=== PATIENT | male | born 1955 | race Caucasian/White ===

== ENCOUNTER 2024-09-22 13:55 | Emergency (ER) | payer OTHER, SELFPAY ==
[2024-09-22 13:58] VITALS: BP 136/57; PULSE 89; RESP 18; TEMP 36.6; O2SAT 90; BMI 32.0
--- NOTE | 2024-09-22 15:05 | ED_ITS ---
HPI - General Adult General Date Seen: 09/22/24 Chief complaint: Extremity Pain/Injury, Lower Stated complaint: left foot injury Time Seen by Provider: 09/22/24 14:59 History of Present Illness HPI narrative: 68 yo M with h/o tobacco use, COPD, hearing loss presenting to the ER today with concern for pain in the is He went to the ER in [place] on 09/19. Had ankle and foot x-rays of his left side that showed mild soft tissue swelling of the left foot. No acute fracture or dislocation . Per ER records... ?he developed left foot pain 2 days ago which has worsened since. Thinks that he may have kicked something a few days ago and so is concerned that he may have broken his foot. States that he was recently walking around at [facility] and believes that his could have contributed to his worsening pain. He endorses having numbness to the toes in his bilateral feet but denies a history of diabetes. Denies feeling short of breath or having any pain to his right lower extremity... patient has tenderness of the dorsum of the left midfoot but is neurovascularly intact. He does have some erythema on the dorsum of the left foot. No evidence of crepitus, streaking, hemorrhagic bullae to suggest necrotizing fasciitis. X-rays are negative for any fracture. presentation is suggestive of uncomplicated cellulitis of the left foot. No evidence of puncture wound on the plantar surface to indicate pseudomonal c overage. Discussed these findings with the patient and given that he is vitally stable, nontoxic-appearing, and has simple cellulitis through shared decision making we elected on a plan for a trial of outpatient antibiotics... History from the patient is that he was using his foot to kick a cement block last week 1 day when he was moving his boat. He does not recall kicking blood heart but maybe had some mild pain in his toes after that. He really have much pain for several days. Beginning sometime earlier this week, perhaps 4-6 days ago he started having increasing pain with swelling on the top of his foot. He says he has been taking the cephalexin (a 1000 mg p.o. t.i.d. but has noticed increasing redness and swelling of his foot and also slightly worsening pain in his entire foot. He did have some fevers and chills a few days ago but is not having a fever today. Came to the ER here in [place] today because he does not believe what the doctors in the ER in [place] told him. He is skeptical about their read of the x-rays. Since he was discharged from [place] he has noted increased swelling and redness on the top of his left foot. Also ongoing pain and pain with walking. He has had some chills but no objective fevers at home. No other body aches. No swelling or redness in his right foot. He has no known history of diabetes. He has no history of vascular disease. No history of DVT or PE. He is a smoker. Related Data Home Medications ?Medication ?Instructions ?Recorded ?Confirmed albuterol sulfate 90 mcg/actuation 1 - 2 puff inhalation Q4H PRN 09/22/24 09/22/24 aerosol inhaler dyspnea propranolol 60 mg capsule,24 60 mg PO DAILY 09/22/24 09/22/24 hr,extended release Allergies Allergy/AdvReac Type Severity Reaction Status Date / Time No Known Drug Allergies Allergy Verified 09/22/24 14:06 Exam Narrative: Exam Narrative: Constitutional: Appears well-developed and well-nourished. Alert. Conversant. Non toxic. HENT: Head: Atraumatic. Nose: Nose normal. Mouth/Throat: Oral mucosa is clear and moist. no trismus. Pharynx normal. Tonsils symmetric. No tonsillar enlargement, erythema, or exudate. Eyes: Conjunctivae normal. EOM normal. Pupils equal, round, and reactive to light. No scleral icterus. Neck: Normal range of motion. Neck supple. No tracheal deviation present. Cardiovascular: Normal rate, regular rhythm. No gallop. No friction rub. No murmur heard. Symmetric radial artery pulses Pulmonary/Chest: His mustache is stained from tobacco use. Effort normal. No stridor. No respiratory distress. No wheezes. No rales. No rhonchi . No tenderness. Abdominal: Soft. No distension. No mass. No tenderness. No rebound. No guarding. Musculoskeletal: RUE: Normal range of motion. No tenderness. No deformity LUE: Normal range of motion. No tenderness. No deformity RLE: Normal range of motion. Trace edema. No tenderness. No deformity no signs of erythema or swelling of the foot. He does have onychomycosis and thickening of all his toenails. LLE: Normal range of motion in his hip and knee and ankle.. He has 3+ edema in the foot and 1+ edema in the left frances and calf. He has marked erythema of the entire left foot from the toes all the way up to the anterior ankle with a small area of subtle redness extending about [address] the frances toward the knee. No other ascending lymphangitis. The entire foot is tender. No palpable fluctuance. No crepitus or gas in the soft tissue. I am not able to palpate DP or PT pulses due to overlying soft tissue edema but he does have brisk cap refi ll in the toes. There is a fairly large corn on the medial part of the toe without associated ulcer. I do not see any signs of puncture wounds to the sole of the feet or other so foot ulcers or maceration between the toes. Foot exam suspicious for diffuse cellulitis without a clear nidus for infection. Lymph: No ascending lymphangitis Neurological: Alert and oriented to person, place, and time. Normal strength. CN II-VII intact. No sensory deficit. GCS eye subscore is 4. GCS verbal subscore is 5. GCS motor subscore is 6. Normal coordination. intact distal toe weight- bearing and sensory function in both feet. Skin: Skin is warm and dry. No rash noted. No pallor. Normal capillary refill. Psychiatric: Normal mood. Normal affect. Const: Vital Signs, click to edit/add: Vital Signs - 24 hr 09/22/24 13:58 Temperature 98 F Pulse Rate [Pulse Oximeter] 89 Respiratory Rate 18 Blood Pressure [Ri ght Upper Arm] 136/57 L Pulse Oximetry 90 Oxygen Delivery Me thod Room Air Course Vital Signs Vital signs: Initial Vital Signs Temperature 98 F 09/22/24 13:58 Temperature Source Temporal Artery Scan 09/22/24 13:58 Pulse Rate 89 09/22/24 13:58 Respiratory Rate 18 09/22/24 13:58 Blood Pressure 136/57 L 09/22/24 13:58 Blood Pressure Mean 83 09/22/24 13:58 Blood Pressure Position Sitting 09/22/24 13:58 Pulse Oximetry 90 09/22/24 13:58 Oxygen Delivery Method Room Air 09/22/24 13:58 Vital Signs Temperature 98 F 09/22/24 13:58 Pulse Rate 89 09/22/24 13:58 Respiratory Rate 18 09/22/24 13:58 Blood Pressure 136/57 L 09/22/24 13:58 Pulse Oximetry 90 09/22/24 13:58 Oxygen Delivery Method Room Air 09/22/24 13:58 Temperature 98 F 09/22/24 13:58 Pulse Rate 89 09/22/24 13:58 Respiratory Rate 18 09/22/24 13:58 Blood Pressure 136/57 L 09/22/24 13:58 Pulse Oximetry 90 09/22/24 13:58 Oxygen Delivery Method Room Air 09/22/24 13:58 Medications Administered Medications: Discontinued Medications Generic Name Dose Route Start Last Admin Trade Name Skye PRN Reason Stop Dose Admin Amoxicillin/Clavulanate Potassium 875 mg 09/22/24 17:58 09/22/24 18:03 Amoxicillin/Clavulanate 875 Mg/125 Mg Tablet PO 09/22/24 17:59 875 mg ONCE ONE Administration Vancomycin/PEG/NADA/Lysine/Water 2 gm in 400 mls @ 200 mls/hr 09/22/24 15:45 09/22/24 18:03 Vancomycin 2 Gm/400 Ml IVPB 09/22/24 17:44 Infused ONCE ONE Infusion IV Miscellaneous Supplies 1 each 09/22/24 15:30 09/22/24 16:26 Pharmacist Consult 1 each Q24H ARIELLA Administration Protocol Medical Decision Making MDM Narrative Medical decision making narrative: 68-year-old gentleman presents to the ER today with concern for increasing redness and swelling and pain in his left foot. He had been seen in the ER in [place] a few days ago but is skeptical about their diagnosis. Says that he kicked a cement block last week when he was parking his boat and he is worried that he broke his foot. He artery had x-rays of [place] of his foot and ankle that were read as normal. Given the patient's skepticism we did repeat x-rays here [place] today and they again demonstrate no evidence for fracture or dislocation. At this point I do not think he needs CT scan to look for an occult fracture. Ultrasound of his left lower extremity is negative for DVT. I was not able to palpate pulses due to significant overlying edema but nursing was able to confirm arterial flow using Doppler ultrasound. He does have normal cap refill and at this point does not appear to have acute limb ischemia. Clinical presentation is much more concerning for a evolving and worsening cellulitis affecting his entire left foot and spreading up the distal portion of his left frances. On exam I do not detect any palpable fluctuance or crepitus to suggest abscess or necrotizing infection. I do not see any signs of associated foot ulcers. He is not diabetic and his blood sugars normal. We did check labs and overall white count is normal but there is a neutrophil predominance. Presentation concerning for an evolving and worsening cellulitis that is failing outpatient antibiotic therapy with cephalexin. I discussed this concern in detail with the patient and his brother. Started arm on IV vancomycin here in the ER. I strongly recommended admission for IV antibiotics given failed outpatient antibiotic therapy. The patient is refusing admission. Although I disagree with his decision I do think he has medical decision-making capacity and cannot hold him here in the hospital. Discussed the risk of worsening infection, more prolonged hospitalization, potential need for surgery or amputation, and the potential risk of sepsis and . Patient wants to discharge home. Although this is not my medical advice I will support him by at least change antibiotics from cephalexin to double coverage with Bactrim for MRSA and Augmentin for more broad-spectrum coverage of other potential skin jane. Plan will be to have the patient call his primary care provider to get a recheck within 2 days. Failing that he will return to the ER for reexamination. I did have the patient take photographs of his foot with his brother smart phone so that when he does his recheck visit, if he sees a different provider they may be able to compare. He is invited to return to the ER if he changes his mind or if he worsens. Prescription for [place] that he can use for pain. Opiate precautions reviewed. Lab Data Labs: Lab Results 09/22/24 Range/Units 15:40 WBC 8.48 (4.50-11.00) K/uL RBC 4.91 (4.30-5.90) m/uL Hgb 13.5 (13.5-17.5) gm/dL Hct 43.0 (37.0-53.0) % MCV 88 (80-100) fL MCH 28 (26-34) pg MCHC 31 L (32-36) gm/dL RDW Coeff of Simon 13.8 (11.5-15.5) % Plt Count 234 (140-440) K/uL Neut % (Auto) 79.5 H (42.0-72.0) % Lymph % (Auto) 9.1 L (20-44) % [place] % (Auto) 10.3 (0.0-11.0) % Eos % (Auto) 0.9 (0.0-7.0) % Baso % (Auto) 0.1 (0.0-3.0) % Neut # (Auto) 6.70 (1.7-7.0) K/uL Lymph # (Auto) 0.80 L (0.90-2.90) K/uL [place] # (Auto) 0.90 (0.00-0.90) K/UL Eos # (Auto) 0.08 (0.00-0.50) K/uL Baso # (Auto) 0.01 (0.00-0.30) K/uL Abs Immat Gran (auto) 0.01 (0.00-0.30) K/uL Imm/Tot Granulo (auto) 0.1 % Sodium 134 L (135-149) mmol/L Potassium 4.3 (3.6-5.1) mmol/L Chloride 98 (96-114) mmol/L Carbon Dioxide 29 (20-32) mmol/L Anion Gap 7 (7-15) mEq/L BUN 26 (7-30) mg/dL Creatinine 1.1 (0.5-1.5) mg/dL Estimated Creat Clear 77.89 Estimated GFR 74 ml/min Glucose 116 H (60-115) mg/dL Lactate 0.9 (0.5-1.9) mmol/L Calcium 9.3 (8.4-10.6) mg/dL Imaging Data XR L foot: Attestation: I have reviewed the pertinent imaging results. Radiologist's impression: Findings: Bones: Alignment is normal. No fractures or bone lesions. Joint spaces: [id number] scattered degenerative changes. Soft tissues: Severe soft tissue swelling about the foot. Impression: Nonspecific severe soft tissue swelling about the foot. US venous LLE: Attestation: I have reviewed the pertinent imaging results. My impression: Report from US tech. neg for DVT Radiologist's impression: FINDINGS: Deep veins: Sonographic imaging demonstrates the left common femoral, deep femoral, superficial femoral, popliteal, posterior tibial and the contralateral right common femoral veins to be fully compressible with normal color Doppler blood flow. Superficial veins: Greater saphenous vein is fully compressible. No popliteal cyst. IMPRESSION: No DVT in the left lower extremity. Discharge Plan Discharge Clinical Impression: Cellulitis of foot, left Instructions: Cellulitis (ED) Additional Instructions: As we discussed, I recommend that you stay in the hospital today. However you do not want to stay. In lieu of hospitalization, we will try to treat your infection at home. We gave you extra antibiotics here in the ER (vancomycin and Augmentin). You can stop your current antibiotic (cephalexin) and switched to these 2 new antibiotics (Augmentin and Bactrim). Please try to keep your foot elevated when you can. Use Tylenol or ibuprofen if needed for pain. Use the prescription pain killer, on [place], if needed for breakthrough pain. Be careful with [place] because it is an opiate and can cause dizziness, drowsiness, constipation, and can be addictive. Please follow-up with your regular doctor in 2 days for recheck, even if you are getting better. If you get worse, or if you change your mind about wanting to stay in the hospital, return to the ER right away. Activity Level: No Restrictions Discharge Diet: Regular Prescriptions: No Action albuterol sulfate 90 mcg/actuation HFA aerosol inhaler 1 - 2 puff INHALATION Q4H PRN (Reason: dyspnea) propranolol 60 mg capsule,extended release 24 hr 60 mg PO DAILY Follow Up/Referrals: Provider,Not a Local [Primary Care Provider] - Stand Alone Forms: [employer] Info Instructions
--- NOTE | 2024-09-22 15:27 | CRLHL7_ITS ---
For Patients: As a result of the Century Cures Act, medical imaging exams and procedure reports are released immediately into your electronic medical record. You may view this report before your referring provider. If you have questions, please contact your health care provider. INDICATION: foot/ankle red, edema. TECHNIQUE: Ultrasound venous duplex lower left extremity. Compression venous exam was performed using wallace-scale, color Doppler, and spectral Doppler analysis. COMPARISON: None. FINDINGS: Deep veins: Sonographic imaging demonstrates the left common femoral, deep femoral, superficial femoral, popliteal, posterior tibial and the contralateral right common femoral veins to be fully compressible with normal color Doppler blood flow. Superficial veins: Greater saphenous vein is fully compressible. No popliteal cyst. IMPRESSION: No DVT in the left lower extremity. Dictated by Michelle Berman MD @ 09/22/2024 4:40:38 PM (Electronically Signed)
--- NOTE | 2024-09-22 15:27 | CRLHL7_ITS ---
For Patients: As a result of the Century Cures Act, medical imaging exams and procedure reports are released immediately into your electronic medical record. You may view this report before your referring provider. If you have questions, please contact your health care provider. Indication: FOOT PAIN, SWELLING, REDNESS. Technique: Left foot 3 views. Comparison: None. Findings: Bones: Alignment is normal. No fractures or bone lesions. Joint spaces: [id number]-ia-[id number] scattered degenerative changes. Soft tissues: Severe soft tissue swelling about the foot. Impression: Nonspecific severe soft tissue swelling about the foot. Dictated by Javier Peres MD @ 09/22/2024 4:41:44 PM (Electronically Signed)
[2024-09-22 15:45] LABS: Lactate* 0.9 mmol/L (0.5-1.9)
[2024-09-22 15:48] LABS: Basophils Absolute Auto 0.01 K/uL (0.00-0.30); Basophils Percent Auto 0.1 % (0.0-3.0); Eosinophils Absolute Auto 0.08 K/uL (0.00-0.50); Eosinophils Percent Auto 0.9 % (0.0-7.0); Hemoglobin* 13.5 gm/dL (13.5-17.5); Immature Granulocytes Abs Auto 0.01 K/uL (0.00-0.30); Immature Granulocytes Pct Auto 0.1 %; Lymphocytes Percent Auto 9.1 % (20-44); Mean Corpuscular HGB Conc 31 gm/dL (32-36); Mean Corpuscular Hemoglobin 28 pg (26-34); Mean Corpuscular Volume 88 fL (80-100); Monocytes Percent Auto 10.3 % (0.0-11.0); Neutrophils Percent Auto 79.5 % (42.0-72.0); Platelet Count* 234 K/uL (140-440); RDW Coefficient of Variation % 13.8 % (11.5-15.5); Red Blood Count 4.91 m/uL (4.30-5.90); White Blood Count* 8.48 K/uL (4.50-11.00)
[2024-09-22 15:52] LABS: Slide Review Reflex No
[2024-09-22 16:00] LABS: Chloride* 98 mmol/L (96-114); Potassium* 4.3 mmol/L (3.6-5.1); Sodium* 134 mmol/L (135-149)
[2024-09-22 16:02] LABS: Creatinine* 1.1 mg/dL (0.5-1.5); Est. Creatinine Clearance* 77.89; Estimated Glomerular Filt Rate 74 ml/min
[2024-09-22 16:03] LABS: Anion Gap 7 mEq/L (7-15); Blood Urea Nitrogen* 26 mg/dL (7-30); Calcium* 9.3 mg/dL (8.4-10.6); Carbon Dioxide* 29 mmol/L (20-32); Glucose* 116 mg/dL (60-115)
[2024-09-22] MEDS: VANCOMYCIN 2 GM/400 ML 2 GM/400 ML PIGGYBACK IVPB (16:26)
--- NOTE | 2024-09-22 16:34 | ED.NURSE ---
pedal pulses assessed on bilateral feet using bedside doppler. Left foot pulse 88, right foot pulse 87.
[2024-09-22] MEDS: AMOXICILLIN/CLAVULANATE 875 mg/125 mg TABLET PO (18:03)
--- NOTE | 2024-09-23 17:36 | ED.GENADULT ---
HPI - General Adult General Date Seen: 09/22/24 Chief complaint: Extremity Pain/Injury, Lower Stated complaint: left foot injury Time Seen by Provider: 09/22/24 14:59 History of Present Illness HPI narrative: This addendum on 09/23 is to my ER visit from this patient yesterday on 09/22. 68-year-old gentleman who I saw yesterday with a significant left foot cellulitis that was already failing outpatient antibiotic therapy with cephalexin.. I had recommended hospitalization but he refused. He was treated with 1 dose of IV vancomycin yesterday and then sent home with Bactrim and Augmentin. Blood culture came back positive this afternoon for Gram-positive cocci in the aerobic bottle. No further characterization or sensitivity data is available at this time. I contacted the patient on his listed home phone number and actually this went to his brother, Quan. I updated his brother about the positive blood culture and recommended that the patient come back in. The patient's brother Quan gave me the patient's renal phone number. I called that. He did not answer but I left a message on his voicemail to instructing him to call the ER right away. I then contacted his brother Pato again. Brother Pato understands that the patient did not answer his phone. His brother is frustrated about the patient's behavior, but indicates that this is fairly typical for him. He will contact Ramon and encouraged him to come back to the hospital. However Quan is not optimistic that the patient will actually come back. Related Data Home Medications ?Medication ?Instructions ?Recorded ?Confirmed albuterol sulfate 90 mcg/actuation 1 - 2 puff inhalation Q4H PRN 09/22/24 09/22/24 aerosol inhaler dyspnea propranolol 60 mg capsule,24 60 mg PO DAILY 09/22/24 09/22/24 hr,extended release Allergies Allergy/AdvReac Type Severity Reaction Status Date / Time No Known Drug Allergies Allergy Verified 09/22/24 14:06 Course Vital Signs Vital signs: Initial Vital Signs Temperature 98 F 09/22/24 13:58 Temperature Source Temporal Artery Scan 09/22/24 13:58 Pulse Rate 89 09/22/24 13:58 Respiratory Rate 18 09/22/24 13:58 Blood Pressure 136/57 L 09/22/24 13:58 Blood Pressure Mean 83 09/22/24 13:58 Blood Pressure Position Sitting 09/22/24 13:58 Pulse Oximetry 90 09/22/24 13:58 Oxygen Delivery Method Room Air 09/22/24 13:58 Vital Signs Temperature 98 F 09/22/24 13:58 Pulse Rate 89 09/22/24 13:58 Respiratory Rate 18 09/22/24 13:58 Blood Pressure 136/57 L 09/22/24 13:58 Pulse Oximetry 90 09/22/24 13:58 Oxygen Delivery Method Room Air 09/22/24 13:58 Temperature 98 F 09/22/24 13:58 Pulse Rate 89 09/22/24 13:58 Respiratory Rate 18 09/22/24 13:58 Blood Pressure 136/57 L 09/22/24 13:58 Pulse Oximetry 90 09/22/24 13:58 Oxygen Delivery Method Room Air 09/22/24 13:58 Medications Administered Medications: Discontinued Medications Generic Name Dose Route Start Last Admin Trade Name Freq PRN Reason Stop Dose Admin Amoxicillin/Clavulanate Potassium 875 mg 09/22/24 17:58 09/22/24 18:03 Amoxicillin/Clavulanate 875 Mg/125 Mg Tablet PO 09/22/24 17:59 875 mg ONCE ONE Administration Vancomycin/PEG/NADA/Lysine/Water 2 gm in 400 mls @ 200 mls/hr 09/22/24 15:45 09/22/24 18:03 Vancomycin 2 Gm/400 Ml IVPB 09/22/24 17:44 Infused ONCE ONE Infusion IV Miscellaneous Supplies 1 each 09/22/24 15:30 09/22/24 16:26 Pharmacist Consult 1 each Q24H ARIELLA Administration Protocol Medical Decision Making Lab Data Labs: Lab Results 09/22/24 Range/Units 15:40 WBC 8.48 (4.50-11.00) K/uL RBC 4.91 (4.30-5.90) m/uL Hgb 13.5 (13.5-17.5) gm/dL Hct 43.0 (37.0-53.0) % MCV 88 (80-100) fL MCH 28 (26-34) pg MCHC 31 L (32-36) gm/dL RDW Coeff of Simon 13.8 (11.5-15.5) % Plt Count 234 (140-440) K/uL Neut % (Auto) 79.5 H (42.0-72.0) % Lymph % (Auto) 9.1 L (20-44) % [place] % (Auto) 10.3 (0.0-11.0) % Eos % (Auto) 0.9 (0.0-7.0) % Baso % (Auto) 0.1 (0.0-3.0) % Neut # (Auto) 6.70 (1.7-7.0) K/uL Lymph # (Auto) 0.80 L (0.90-2.90) K/uL [place] # (Auto) 0.90 (0.00-0.90) K/UL Eos # (Auto) 0.08 (0.00-0.50) K/uL Baso # (Auto) 0.01 (0.00-0.30) K/uL Abs Immat Gran (auto) 0.01 (0.00-0.30) K/uL Imm/Tot Granulo (auto) 0.1 % Sodium 134 L (135-149) mmol/L Potassium 4.3 (3.6-5.1) mmol/L Chloride 98 (96-114) mmol/L Carbon Dioxide 29 (20-32) mmol/L Anion Gap 7 (7-15) mEq/L BUN 26 (7-30) mg/dL Creatinine 1.1 (0.5-1.5) mg/dL Estimated Creat Clear 77.89 Estimated GFR 74 ml/min Glucose 116 H (60-115) mg/dL Lactate 0.9 (0.5-1.9) mmol/L Calcium 9.3 (8.4-10.6) mg/dL Discharge Plan Discharge Clinical Impression: Cellulitis of foot, left Patient Disposition: Home, Self-Care Condition: Stable Instructions: Cellulitis (ED) Additional Instructions: As we discussed, I recommend that you stay in the hospital today. However you do not want to stay. In lieu of hospitalization, we will try to treat your infection at home. We gave you extra antibiotics here in the ER (vancomycin and Augmentin). You can stop your current antibiotic (cephalexin) and switched to these 2 new antibiotics (Augmentin and Bactrim). Please try to keep your foot elevated when you can. Use Tylenol or ibuprofen if needed for pain. Use the prescription pain killer, on [place], if needed for breakthrough pain. Be careful with [place] because it is an opiate and can cause dizziness, drowsiness, constipation, and can be addictive. Please follow-up with your regular doctor in 2 days for recheck, even if you are getting better. If you get worse, or if you change your mind about wanting to stay in the hospital, return to the ER right away. Activity Level: No Restrictions Discharge Diet: Regular Prescriptions: No Action albuterol sulfate 90 mcg/actuation HFA aerosol inhaler 1 - 2 puff INHALATION Q4H PRN (Reason: dyspnea) propranolol 60 mg capsule,extended release 24 hr 60 mg PO DAILY Follow Up/Referrals: Provider,Not a Local [Primary Care Provider] - Stand Alone Forms: [employer] Info Instructions
== END 2024-09-22 18:16 | disposition home or self-care (01) ==
PROVIDERS: Emergency Provider Emergency Medicine
DX: L03.116 Cellulitis of left lower limb (principal)
CPT/HCPCS: 36415; 73630; 80048; 83605; 85025; 87040; 87186; 93971; 96365; 99281; 99284; A9270; J3372

== ENCOUNTER 2024-09-23 18:58 | Inpatient (IN) | payer OTHER, SELFPAY ==
[2024-09-23 19:04] VITALS: BP 137/76; PULSE 66; RESP 16; TEMP 37.2; O2SAT 97; BMI 32.5
--- NOTE | 2024-09-23 19:39 | P.IMHP_ITS ---
Hospitalist- H&P: HPI History of Present Illness Date Seen: 09/23/24 Chief complaint: Infection, was seen yesterday, ER asked him to com Narrative: Ramon Mclain is a 68 year old male who presented to the ER this evening at the behest of our ER team for a positive blood culture (collected during ER visit yesterday). This was collected for L foot cellulitis. He started having pain in L foot approximately 6 days ago, seen in [place] ER on 09/19 and placed on Keflex. Symptoms worsened and he was seen in our ER yesterday, given IV Vancomycin. Refused admission yesterday, discharged on Augmentin and Bactrim. Called to return today given + GPC on blood culture. ER Course and Findings: - negative ultrasound for DVT 09/22 - XR on 09/22 negative for acute fracture, + for edema - normal WBC with PMN predominance - IV Vancomycin administered Today, Ramon endorses discomfort in L foot, worse with ambulation. No fevers. Histories updated below. Dr. Falk is PCP at [facility]. Review of Systems Narrative: - intermittent dyspnea with exertion, Albuterol helpful for this - no CP, no GI symptoms PFSH PFSH Medical History (Updated 09/23/24 @ 20:37 by Kira Antonio MD) Smoker ?F17.200 - Nicotine dependence, unspecified, uncomplicated (ICD-10) Essential tremor ?G25.0 - Essential tremor (ICD-10) COPD (chronic obstructive pulmonary disease) ?J44.9 - Chronic obstructive pulmonary disease, unspecified (ICD-10) Type 2 diabetes mellitus in remission ?E11.9 - Type 2 diabetes mellitus without complications (ICD-10) Surgical History (Updated 09/23/24 @ 19:43 by Kira Antonio MD) History of knee replacement ?Z96.659 - Presence of unspecified artificial knee joint (ICD-10) Social History (Updated 09/23/24 @ 20:27 by Kira Antonio MD) Narrative: Retired, lives in [place]. Brother Quan would be MDM if needed. Full Code. Daily smoker, no ETOH use. Meds Home Medications and Allergies Home Medications ?Medication ?Instructions ?Recorded ?Confirmed ?Type albuterol sulfate 90 mcg/actuation 1 - 2 puff inhalation Q4H PRN 09/22/24 09/23/24 History aerosol inhaler dyspnea propranolol 60 mg capsule,24 60 mg PO DAILY 09/22/24 09/23/24 History hr,extended release amoxicillin-pot clavulanate .ROUTE 09/23/24 History hydrocodone-acetaminophen .ROUTE 09/23/24 History sulfamethoxazole-trimethoprim .ROUTE 09/23/24 History Allergies Allergy/AdvReac Type Severity Reaction Status Date / Time No Known Drug Allergies Allergy Verified 09/23/24 19:11 Exam Narrative: Exam Narrative: GEN: Alert and oriented, sitting comfortably at edge of bed HEENT: EOMIs bilaterally, no scleral icterus CV: RRR, No concerning murmurs R: LCTA bilaterally without concerning wheezing, air movement adequate Ext: LLE is erythematous and edematous with + extension caudally (outlined). Large callous medial large toe, stable. No open skin lesions or drainage, no palpated fluid collection Skin: No other concerning findings on exposed skin Neuro: + tremor BUEs Psych: Appropriate Const: Vital Signs, click to edit/add: Vital Signs - 24 hr 09/23/24 19:04 Temperature 98.9 F Pulse Rate [Pulse Oximeter] 66 Respiratory Rate 16 Blood Pressure [Ri ght Upper Arm] 137/76 Pulse Oximetry 97 Oxygen Delivery Me thod Room Air Assessment and Plan Assessment and plan (1) Bacteremia: Problem comment: - GPC, source LLE cellulitis - continue Vancomycin and Zosyn (09/23) Status: Acute (2) Cellulitis of foot, left: Status: Acute (3) Smoker: Problem comment: - prn nicotine replacement Status: Acute (4) Type 2 diabetes mellitus in remission: Problem comment: - A1C 6.2 05/29, was as high as 6.7 in 2018 - defers accuchecks and SSI, reasonable given A1C Status: Acute (5) COPD (chronic obstructive pulmonary disease): Problem comment: - per [facility] chart review, uses Albuterol - Trelegy Rx, cost-prohibitive so not using Status: Acute Plan - per above - brother Quan updated at bedside, questions answered
--- OUTSIDE RECORDS SUMMARY | 2024-09-23 19:43 | XMS_ITS | Clinical Summary ---
Author Organization [employer] Address [place], [place] [address] Care Team Providers Care Correspondence Representative Name Role Phone Nas Falk MD Primary Care Provider [phone] Allergies No known active allergies Medications Medication Sig Dispensed Refills Start Date End Date Status fluticasone ggh-fqbvsiznqnzk-sf lanterol (TRELEGY ELLIPTA) 100-62.5-25 mcg inhalerIndications: Chronic obstructive pulmonary disease, unspecified COPD type (HC) Inhale 1 Puff by mouth once daily. Rinse mouth after use 180 Each 3 05/27/2024 Active albuterol HFA (PRO-AIR; VENTOLIN; PROVENTIL) 90 mcg/actuation inhalerIndications: Cough, unspecified type,Acute dyspnea Inhale 1-2 Puffs by mouth every 4 hours if needed for Shortness Of Breath. 18 g 6 05/27/2024 Active sildenafil citrate (VIAGRA) 100 mg tabletIndications:E rectile dysfunction, unspecified erectile dysfunction type Take 1 Tablet (100 mg) by mouth once daily if needed for Erectile Dysfunction. Take 30min to 4 hours before sexual activity. Max 100mg/24hr. 6 Tablet 11 05/27/2024 Active propranolol ER (INDERAL LA) 60 mg Cs24 Sustained-Release capsuleIndications: Tremor Take 1 Capsule (60 mg) by mouth once daily. 90 Capsule 3 05/27/2024 Active cephalexin 500 mg capsuleIndications: Cellulitis and abscess of toe of left foot Take 2 Capsules (1,000 mg) by mouth three times daily for 5 days. 30 Capsule 09/19/2024 09/24/2024 Active Active Problems Problem Noted Date Diagnosed Date Chronic obstructive pulmonar y disease, unspecified COPD type 05/27/2024 Colon polyp, hyperplastic 09/30/2014 Tobacco dependence 09/03/2014 Unspecified hearing loss 06/05/2008 Encounters Date Type Department Care Team Description 09/19/2024 8:42 AM UNDERBASTER - 09/19/2024 10:49 AM UNDERBASTER Emergency [facility] [address] [place] [address] Aakash Saavedra MD Cellulitis and abscess of toe of left foot (Primary Dx) Discharge Disposition: Home Self Care 09/19/2024 Travel from Last 3 Months Immunizations Name Administration Dates Next Due COVID-19 vaccine (Moderna 100mcg/0.5mL) ASHLEY MANTILLA 02/24/2021,01/27/2021 COVID-19 vaccine (Pfizer-Bio NTech 30mcg/0.3mL) 12YO+ PETAR-SUCROSE ASHLEY MANTILLA 12/07/2021 Pneumococcal Conj 20-valent (Prevnar 20) 023 Tdap 08/25/2014 Family History Medical History Relation Name Comments Other Brother multiple unkown health conditions Crohn's disease Father Other Father removal of inte walker and uterine retention No Known Problems Maternal Aunt No Known Problems Maternal Grandfather No Known Problems Maternal Grandmother No Known Problems Maternal Uncle Alzheimer's disease Mother Heart attack Mother Stroke Mother No Known Problems Paternal Aunt No Known Problems Paternal Grandfather No Known Problems Paternal Grandmother No Known Problems Paternal Uncle Relation Name Status Comments Brother Alive Daughter Father Maternal Aunt Maternal Grandfather Maternal Grandmother Maternal Uncle Mother Alive Paternal Aunt Paternal Grandfather Paternal Grandmother Paternal Uncle Son Social History Tobacco Use Types Packs/Day Years Used Date Smoking Tobacco: Every Day Cigarettes Smokeless Tobacco: Never Tobacco Cessation:Ready to Q uit: Not Asked; Counseling Given: Not Answered Alcohol Use Standard Drinks/Week Comments Not Currently 0 (1 standard drink = 0.6 oz pur e alcohol) PHQ-2 Answer Date Recorded PHQ-2 TOTAL SCORE 0 05/27/2024 Social Connections Answer Date Recorded Do you often feel lonely or isolated from those around you? 0 05/27/2024 Financial Resource Strain Answer Date R ecorded Difficulty of Paying Living Expenses 3 05/27/2024 Difficulty of Paying Living Expenses Not on file 05/27/2024 Food Insecurity Answer Date Recorded Do you worry your food will run out before you are able to buy more? 1 05/27/2024 Transportation Needs Answer Date Record ed Does lack of transportation keep you from medica l appointments? 1 05/27/2024 Does lack of transportation keep you from work, meetings or getting things that you need? 1 05/27/2024 Housing Stability Answer Date Recorded What is your housing situation today? 1 05/27/2024 Sex and Gender Information Value Date Recorded Sex Assigned at Not on file Gender Identity Not on file Sexual Orientation Not on file Obstetrics History Last Filed Vital Signs Vital Sign Reading Time Taken Comments Blood Pressure 135/73 09/19/2024 10:15 AM UNDERBASTER Pulse 89 09/19/2024 10:20 AM UNDERBASTER Temperature 36.8 C (98.2 F) 09/19/2024 8:49 AM UNDERBASTER Respiratory Rate 16 09/19/2024 8:49 AM UNDERBASTER Oxygen Saturation 96% 09/19/2024 10: 20 AM UNDERBASTER Inhaled Oxygen Concentration - - Weight 116.4 kg (256 lb 9.9 oz) 09/19/2024 8:49 AM UNDERBASTER Height 188 cm (6' 2) 09/19/2024 8:49 AM UNDERBASTER Body Mass Index 32.95 09/19/2024 8:49 AM UNDERBASTER Plan of Treatment Upcoming Encounters Date Type Department Care Team (Late st Contact Info) Description 09/25/2024 11:10 AM UNDERBASTER Office Visit [facility] [address] [place] [address] Nas Falk MD [address] [place] [address] Health Maintenance Due Date Last Done Comments Zoster (shingles) series for age 50+ (1 of 2) 2006 Colonoscopy through age 75 09/23/2019 09/23/2014 AAA screening age 65-74 2021 COVID-19 vaccine series ( season) 2024 12/07/2021, 02/24/2021, 01/27/2021 Influenza for age 65+ 07/07/2024 Tetanus booster 08/25/2024 08/25/2014 BMI (ht and wt on same day) for age 18+ 05/27/2025 05/27/2024, 11/25/2022, 04/29/2019, Additional history exists Medicare Wellness for age 65+ 05/28/2025, 11/25/2022, 08/15/2018 Depression screening for age 12+ 05/29/2025 05/29/2024, 05/27/2024, 11/25/2022, Additional history exists Lipids for age 45-75 05/27/2029 05/27/2024, 11/25/2022, 08/15/2018, Additional history exists Tdap Completed 08/25/2014 Hepatitis C screening for ag e 18-79 Completed 08/15/2018 Pneumococcal series for age 65+ Completed 3 Procedures Procedure Name Priority Date/Time Associated Diagnosis Comments XR ANKLE 2 VIEWS LEFT STAT 09/19/2024 9:21 AM UNDERBASTER XR FOOT 3 VIEWS LEFT STAT 09/19/2024 9:21 AM UNDERBASTER LIPID PANEL W REFLEX MEASURED LDL Routine 05/27/2024 9:25 AM CDT Hyperlipidemia, unspecified hyperlipidemia type ANTI HCV Routine 08/15/2018 3:53 PM CDT Need for hepatitis C screening test from Last 3 Months or Most Recently Relevant to Health Maintenance Results * XR ANKLE 2 VIEWS LEFT (09/19/2024 9:21 AM UNDERBASTER) Anatomical Region Laterality Modality ANKLES, ANKLE L Digital Radiogra phy 09/19/2024 9:25 AM UNDERBASTER Impressions 09/19/2024 9:25 AM UNDERBASTER Soft tissue swelling around the left ankle. Dictated by Shanta Sainz MD @ 09/19/2024 9:25:34 AM (Electronically Signed) Narrative 09/19/2024 9:25 AM UNDERBASTER For Patients: As a result of the Cures Act, medical imaging exams and procedure reports are released immediately into your electronic medical record. You may view this report before your referring provider. If you have questions, please contact your health care provider. INDICATION: Pain COMPARISON: Same-day left foot radiographs TECHNIQUE: Two views left ankle AP and lateral, non weightbearing FINDINGS: No fracture. Normal alignment. 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 No focally destructive bony lesion. Soft tissue swelling around the ankle. No foreign body. Procedure Note Shanta Sainz MD - 09/19/2024 For Patients: As a result of the Cures Act, medical imagingexams and procedure reports are released immediately into your electronicmedical record. You may view this report before your referring provider.If you have questions, please contact your health care provider. INDICATION: Pain COMPARISON: Same-day left foot radiographs TECHNIQUE: Two views left ankle AP and lateral, non weightbearing FINDINGS: No fracture. Normal alignment. 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 No focally destructive bony lesion. Soft tissue swelling around the ankle. No foreign body. IMPRESSION: Soft tissue swelling around the left ankle. Dictated by Shanta Sainz MD @ 09/19/2024 9:25:34 AM (Electronically Signed) Aakash Saavedra MD GENERAL IMAGING * XR FOOT 3 VIEWS LEFT (09/19/2024 9:21 AM UNDERBASTER) Anatomical Region Laterality Modality FEET, FOOT L Digital Radiogra phy 09/19/2024 9:24 AM UNDERBASTER Impressions 09/19/2024 9:24 AM UNDERBASTER Mild soft tissue swelling around the left foot. No fracture or dislocation. Dictated by Shanta Sainz MD @ 09/19/2024 9:24:10 AM (Electronically Signed) Narrative 09/19/2024 9:24 AM UNDERBASTER For Patients: As a result of the s Act, medical imaging exams and procedure reports are released immediately into your electronic medical record. You may view this report before your referring provider. If you have questions, please contact your health care provider. INDICATION: Pain COMPARISON: Same day ankle radiographs TECHNIQUE: Three views left foot, nonweightbearing FINDINGS: No fracture. No dislocation. Mild osteoarthritis throughout is commensurate with age. No focally destructive bone lesions. Mild soft tissue swelling. No foreign body. Procedure Note Shanta Sainz MD - 09/19/2024 For Patients: As a result of the Cures Act, medical imagingexams and procedure reports are released immediately into your electronicmedical record. You may view this report before your referring provider.If you have questions, please contact your health care provider. INDICATION: Pain COMPARISON: Same day ankle radiographs TECHNIQUE: Three views left foot, nonweightbearing FINDINGS: No fracture. No dislocation. Mild osteoarthritis throughout is commensurate with age. No focally destructive bone lesions. Mild soft tissue swelling. No foreign body. IMPRESSION: Mild soft tissue swelling around the left foot. No fracture ordislocation. Dictated by Shanta Sainz MD @ 09/19/2024 9:24:10 AM (Electronically Signed) Aakash Saavedra MD GENERAL IMAGING * LIPID PANEL W REFLEX MEASURED LDL (05/27/2024 9:25 AM [facility]) CHOLESTEROL,TOTAL 172 100 - 199 mg/dL 05/27/2024 10:06 AM [facility] Comment: Cholesterol, Total Reference Ranges Desirable <200 mg/dL Borderline 200-239 mg/dL High >=240 mg/dL TRIGLYCERIDES 60 <150 mg/dL 05/27/2024 10:06 AM [facility] HDL CHOLESTEROL 53 >40 mg/dL 10:06 AM [facility] NON-HDL CHOLESTEROL 119 <145 mg/dl 05/27/2024 10:06 AM [facility] CHOL/HDL RATIO 3.25 <4.50 05/27/2024 10:06 AM [facility] LDL CHOLESTEROL 107 <=130 mg/dL 05/27/2024 10:06 AM [facility] VLDL CHOLESTEROL 12 <=30 mg/dL 05/27/2024 10:06 AM [facility] PROVIDER ORDERED STATUS RANDOM 05/27/2024 10:06 AM [facility] Blood BLOOD SPECIMEN / Unknown Venipuncture / Unknown 05/27/2024 9:25 AM CDT 05/27/2024 9:28 AM CDT Nas Falk MD CHEMISTRY [facility] [address] [facility] [place] [address] * ANTI HCV [24234.2] (08/15/2018 3:53 PM CDT) HEPATITIS C ANTIBODY Non-React anjali Non-React anjali 08/15/2018 9:18 PM CDT [facility] Comment:Antibodies to HCV no t detected; does not exclude the possibility of exposure to HCV. Blood BLOOD SPECIMEN / Unknown Venipuncture / Unknown 08/15/2018 3:53 PM CDT 08/15/2018 3:56 PM CDT Nas Falk MD SEND OUTS [facility] [address] [place] [address], from Last 3 Months or Most Recently Relevant to Health Maintenance Advance Directives * Full Code (Latest Code Status on File) Date Activated Date Inactivated Comments 09/23/2014 4:32 PM 09/23/2014 7:09 PM * Full Code Date Activated Date Inactivated Comments 09/22/2014 5:03 PM 09/23/2014 4:32 PM Care Teams Correspondence Representative Relationship Specialty Start Date End Date Nas Falk MD [address] [facility] ANITA Hernandez [phone] PCP - General Family Practice 06/12/18
[2024-09-23 19:45] LABS: Basophils Absolute Auto 0.02 K/uL (0.00-0.30); Basophils Percent Auto 0.2 % (0.0-3.0); Eosinophils Absolute Auto 0.14 K/uL (0.00-0.50); Eosinophils Percent Auto 1.6 % (0.0-7.0); Hematocrit 42.5 % (37.0-53.0); Hemoglobin* 13.4 gm/dL (13.5-17.5); Immature Granulocytes Abs Auto 0.01 K/uL (0.00-0.30); Immature Granulocytes Pct Auto 0.1 %; Lymphocytes Percent Auto 7.6 % (20-44); Mean Corpuscular HGB Conc 32 gm/dL (32-36); Mean Corpuscular Hemoglobin 27 pg (26-34); Mean Corpuscular Volume 87 fL (80-100); Neutrophils Percent Auto 81.5 % (42.0-72.0); Platelet Count* 250 K/uL (140-440); RDW Coefficient of Variation % 13.9 % (11.5-15.5); White Blood Count* 8.79 K/uL (4.50-11.00)
[2024-09-23 19:58] LABS: Chloride* 100 mmol/L (96-114); Potassium* 4.2 mmol/L (3.6-5.1); Slide Review Reflex No; Sodium* 135 mmol/L (135-149)
[2024-09-23 20:01] LABS: Creatinine* 1.2 mg/dL (0.5-1.5); Est. Creatinine Clearance* 71.39; Estimated Glomerular Filt Rate 66 ml/min
[2024-09-23 20:02] LABS: Anion Gap 10 mEq/L (7-15); Blood Urea Nitrogen* 25 mg/dL (7-30); Calcium* 9.4 mg/dL (8.4-10.6); Carbon Dioxide* 25 mmol/L (20-32); Glucose* 134 mg/dL (60-115)
[2024-09-23 20:36] LABS: C Reactive Protein* 15.7 mg/dL (0.5-1.0)
[2024-09-23] MEDS: VANCOMYCIN 1.75 GM/350 ML 1.75 GM/350 ML PIGGYBACK IVPB (20:36)
--- NOTE | 2024-09-23 20:36 | ED.GENADULT ---
HPI - General Adult General Date Seen: 09/23/24 Chief complaint: Skin/Abscess/Foreign Body Stated complaint: Infection, was seen yesterday, ER asked him to com Time Seen by Provider: 09/23/24 19:07 History of Present Illness HPI narrative: 68 yo M with h/o tobacco use, COPD, and ongoing left foot cellulitis. He returns to the ER today because I called him after his ER visit yesterday. His blood culture is positive for Gram-positive cocci. He has been taking the new Bactrim and cephalexin since yesterday. He thought maybe his foot was looking slightly better this morning but this afternoon and this evening it has definitely become increasingly red and swollen. He also has new redness extending now proximally up his frances. He is not having any fever and chills. No weakness. No dizziness. No nausea or vomiting. No other symptoms of systemic illness. Per my notes from yesterday... He went to the ER in [place] on 09/19. Had ankle and foot x-rays of his left side that showed mild soft tissue swelling of the left foot. No acute fracture or dislocation . Per ER records... ?he developed left foot pain 2 days ago which has worsened since. Thinks that he may have kicked something a few days ago and so is concerned that he may have broken his foot. States that he was recently walking around at [facility] and believes that his could have contributed to his worsening pain. He endorses having numbness to the toes in his bilateral feet but denies a history of diabetes. Denies feeling short of breath or having any pain to his right lower extremity... patient has tenderness of the dorsum of the left midfoot but is neurovascularly intact. He does have some erythema on the dorsum of the left foot. No evidence of crepitus, streaking, hemorrhagic bullae to suggest necrotizing fasciitis. X-rays are negative for any fracture. presentation is suggestive of uncomplicated cellulitis of the left foot. No evidence of puncture wound on the plantar surface to indicate pseudomonal coverage. Discussed these findings with the patient and given that he is vitally stable, nontoxic-appearing, and has simple cellulitis through shared decision making we elected on a plan for a trial of outpatient antibiotics... History from the patient is that he was using his foot to kick a cement block last week 1 day when he was moving his boat. He does not recall kicking blood heart but maybe had some mild pain in his toes after that. He really have much pain for several days. Beginning sometime earlier this week, perhaps 4-6 days ago he started having increasing pain with swelling on the top of his foot. He says he has been taking the cephalexin (a 1000 mg p.o. t.i.d. but has noticed increasing redness and swelling of his foot and also slightly worsening pain in his entire foot. He did have some fevers and chills a few days ago but is not having a fever today. Came to the ER here in [place] today because he does not believe what the doctors in the ER in [place] told him. He is skeptical about their read of the x-rays. Since he was discharged from [place] he has noted increased swelling and redness on the top of his left foot. Also ongoing pain and pain with walking. He has had some chills but no objective fevers at home. No other body aches. No swelling or redness in his right foot. He has no known history of diabetes. He has no history of vascular disease. No history of DVT or PE. He is a smoker. Related Data Home Medications ?Medication ?Instructions ?Recorded ?Confirmed albuterol sulfate 90 mcg/actuation 1 - 2 puff inhalation Q4H PRN 09/22/24 09/23/24 aerosol inhaler dyspnea propranolol 60 mg capsule,24 60 mg PO DAILY 09/22/24 09/23/24 hr,extended release amoxicillin-pot clavulanate .ROUTE 09/23/24 hydrocodone-acetaminophen .ROUTE 09/23/24 sulfamethoxazole-trimethoprim .ROUTE 09/23/24 Allergies Allergy/AdvReac Type Severity Reaction Status Date / Time No Known Drug Allergies Allergy Verified 09/23/24 19:11 [facility] Medical History (Updated 09/23/24 @ 20:37 by Kira Antonio MD) Smoker ?F17.200 - Nicotine dependence, unspecified, uncomplicated (ICD-10) Essential tremor ?G25.0 - Essential tremor (ICD-10) COPD (chronic obstructive pulmonary disease) ?J44.9 - Chronic obstructive pulmonary disease, unspecified (ICD-10) Type 2 diabetes mellitus in remission ?E11.9 - Type 2 diabetes mellitus without complications (ICD-10) Surgical History (Updated 09/23/24 @ 19:43 by Kira Antonio MD) History of knee replacement ?Z96.659 - Presence of unspecified artificial knee joint (ICD-10) Social History (Updated 09/23/24 @ 20:27 by Kira Antonio MD) Narrative: Retired, lives in [place]. Brother Quan would be MDM if needed. Full Code. Daily smoker, no ETOH use. Exam Narrative: Exam Narrative: Constitutional: Appears well-developed and well-nourished. Alert. Conversant. Non toxic. HENT: Head: Atraumatic. Nose: Nose normal. Mouth/Throat: Oral mucosa is clear and moist. no trismus. Pharynx normal. Tonsils symmetric. No tonsillar enlargement, erythema, or exudate. Eyes: Conjunctivae normal. EOM normal. Pupils equal, round, and reactive to light. No scleral icterus. Neck: Normal range of motion. Neck supple. No tracheal deviation present. Cardiovascular: Normal rate, regular rhythm. No gallop. No friction rub. No murmur heard. Normal cap refill. Still not able to feel pulses in his left foot because of city given overlying edema. Pulmonary/Chest: His mustache is stained from tobacco use. Effort normal. No stridor. No respiratory distress. No wheezes. No rales. No rhonchi . No tenderness. Abdominal: Soft. No distension. No mass. No tenderness. No rebound. No guarding. Musculoskeletal: RUE: Normal range of motion. No tenderness. No deformity LUE: Normal range of motion. No tenderness. No deformity RLE: Normal range of motion. Trace edema. No tenderness. No deformity no signs of erythema or swelling of the foot. He does have onychomycosis and thickening of all his toenails. LLE: Normal range of motion in his hip and knee and ankle.. He has 3+ edema in the foot and 1+ edema in the left frances and calf. He has marked erythema of the entire left foot from the toes all the way up to the anterior ankle that is brighter red today and more swollen than yesterday. He also has spreading of the subtle redness on his left frances extending about [address] the frances toward the knee. No other ascending lymphangitis above the knee. The entire foot is tender. No palpable fluctuance. No crepitus or gas in the soft tissue. I am not able to palpate DP or PT pulses due to overlying soft tissue edema but he does have brisk cap refill in the toes. There is a fairly large corn on the medial part of the toe without associated ulcer. I do not see any signs of puncture wounds to the sole of the feet or other so foot ulcers or maceration between the toes. Lymph: No ascending lymphangitis Neurological: Alert and oriented to person, place, and time. Normal strength. CN II-VII intact. No sensory deficit. GCS eye subscore is 4. GCS verbal subscore is 5. GCS motor subscore is 6. Normal coordination. intact distal toe weight-bearing and sensory function in both feet. Skin: Skin is warm and dry. No rash noted. No pallor. Normal capillary refill. Psychiatric: Normal mood. Normal affect. Const: Vital Signs, click to edit/add: Vital Signs - 24 hr 09/23/24 19:04 Temperature 98.9 F Pulse Rate [Pulse Oximeter] 66 Respiratory Rate 16 Blood Pressure [Ri ght Upper Arm] 137/76 Pulse Oximetry 97 Oxygen Delivery Me thod Room Air Course Vital Signs Vital signs: Initial Vital Signs Temperature 98.9 F 09/23/24 19:04 Temperature Source Temporal Artery Scan 09/23/24 19:04 Pulse Rate 66 09/23/24 19:04 Respiratory Rate 16 09/23/24 19:04 Blood Pressure 137/76 09/23/24 19:04 Blood Pressure Mean 96 09/23/24 19:04 Blood Pressure Position Sitting 09/23/24 19:04 Pulse Oximetry 97 09/23/24 19:04 Oxygen Delivery Method Room Air 09/23/24 19:04 Vital Signs Temperature 98.9 F 09/23/24 19:04 Pulse Rate 66 09/23/24 19:04 Respiratory Rate 16 09/23/24 19:04 Blood Pressure 137/76 09/23/24 19:04 Pulse Oximetry 97 09/23/24 19:04 Oxygen Delivery Method Room Air 09/23/24 19:04 Temperature 98.9 F 09/23/24 19:04 Pulse Rate 66 09/23/24 19:04 Respiratory Rate 16 09/23/24 19:04 Blood Pressure 137/76 09/23/24 19:04 Pulse Oximetry 97 09/23/24 19:04 Oxygen Delivery Method Room Air 09/23/24 19:04 Medical Decision Making MDM Narrative Medical decision making narrative: 68-year-old male returning the ER today based on my phone call. I saw him yesterday with his significant left foot cellulitis and recommended hospitalization yesterday but he refused. Today his blood culture from yesterday is positive for Gram-positive cocci. No further speciation or antibiotic sensitivity data is available yet. He says he does have increasing redness and swelling of the foot and I agree that it is more swollen and red today than yesterday and he also has signs of increasing proximal red spreading on his left frances and calf. Still no evidence for any fluctuance or crepitus in the soft tissue to suggest necrotizing infection or abscess. X-rays of his foot were negative for any fracture or foreign body yesterday. With positive blood culture concern is for bacteremia and possible increased risk for evolving sepsis. Fortunately he remains hemodynamically stable. Will start on IV vancomycin. Discussed with our hospitalist, Dr. Antonio who agrees to admit. Labs again look fairly reassuring. White count 8.7. Similar to yesterday a 1.5% neutrophils on the differential. Sodium and glucose are normal. Kidney function normal. CRP pending at the time of this dictation. It is clear that he has progressing cellulitis and now has positive blood culture from yesterday. Cardiac exam reveals no murmurs to suggest new endocarditis . Admission is clearly warranted for IV antibiotics. Lab Data Labs: Lab Results 09/23/24 Range/Units 19:31 WBC 8.79 (4.50-11.00) K/uL RBC 4.90 (4.30-5.90) m/uL Hgb 13.4 L (13.5-17.5) gm/dL Hct 42.5 (37.0-53.0) % MCV 87 (80-100) fL MCH 27 (26-34) pg MCHC 32 (32-36) gm/dL RDW Coeff of Simon 13.9 (11.5-15.5) % Plt Count 250 (140-440) K/uL Neut % (Auto) 81.5 H (42.0-72.0) % Lymph % (Auto) 7.6 L (20-44) % [place] % (Auto) 9.0 (0.0-11.0) % Eos % (Auto) 1.6 (0.0-7.0) % Baso % (Auto) 0.2 (0.0-3.0) % Neut # (Auto) 7.20 H (1.7-7.0) K/uL Lymph # (Auto) 0.70 L (0.90-2.90) K/uL [place] # (Auto) 0.80 (0.00-0.90) K/UL Eos # (Auto) 0.14 (0.00-0.50) K/uL Baso # (Auto) 0.02 (0.00-0.30) K/uL Abs Immat Gran (auto) 0.01 (0.00-0.30) K/uL Imm/Tot Granulo (auto) 0.1 % Sodium 135 (135-149) mmol/L Potassium 4.2 (3.6-5.1) mmol/L Chloride 100 (96-114) mmol/L Carbon Dioxide 25 (20-32) mmol/L Anion Gap 10 (7-15) mEq/L BUN 25 (7-30) mg/dL Creatinine 1.2 (0.5-1.5) mg/dL Estimated Creat Clear 71.39 Estimated GFR 66 ml/min Glucose 134 H (60-115) mg/dL Calcium 9.4 (8.4-10.6) mg/dL Discharge Plan Discharge Clinical Impression: Cellulitis of foot, left, Bacteremia Prescriptions: No Action albuterol sulfate 90 mcg/actuation HFA aerosol inhaler 1 - 2 puff INHALATION Q4H PRN (Reason: dyspnea) propranolol 60 mg capsule,extended release 24 hr 60 mg PO DAILY amoxicillin-pot clavulanate [Augmentin] .ROUTE sulfamethoxazole-trimethoprim [Bactrim] .ROUTE hydrocodone-acetaminophen [[place]] .ROUTE Follow Up/Referrals: Nas Falk MD [Primary Care Provider] -
[2024-09-23 22:17] VITALS: BP 139/80; PULSE 80; RESP 22; TEMP 36.8; O2SAT 93; BMI 31.6
[2024-09-23] MEDS: PIPERACILLIN/TAZOBACTAM 3.375 GM in 0.9 % SODIUM CHLORIDE Mini-bag 100 ML IVPB (22:47)
[2024-09-23] MEDS: OXYCODONE 5 MG TABLET PO (22:50)
[2024-09-23 23:00] VITALS: BP 132/80; PULSE 84; RESP 20; TEMP 36.8; O2SAT 94
[2024-09-24] MEDS: PIPERACILLIN/TAZOBACTAM 3.375 GM in 0.9 % SODIUM CHLORIDE Mini-bag 100 ML IVPB ×4 (04:06→22:00)
[2024-09-24] MEDS: OXYCODONE 5 MG TABLET PO ×2 (04:58→22:04)
[2024-09-24 06:26] LABS: Basophils Absolute Auto 0.02 K/uL (0.00-0.30); Basophils Percent Auto 0.3 % (0.0-3.0); Eosinophils Absolute Auto 0.18 K/uL (0.00-0.50); Eosinophils Percent Auto 2.6 % (0.0-7.0); Hematocrit 40.1 % (37.0-53.0); Hemoglobin* 12.7 gm/dL (13.5-17.5); Immature Granulocytes Abs Auto 0.01 K/uL (0.00-0.30); Immature Granulocytes Pct Auto 0.1 %; Lymphocytes Percent Auto 13.3 % (20-44); Mean Corpuscular HGB Conc 32 gm/dL (32-36); Mean Corpuscular Hemoglobin 28 pg (26-34); Mean Corpuscular Volume 87 fL (80-100); Monocytes Percent Auto 10.7 % (0.0-11.0); Platelet Count* 246 K/uL (140-440); RDW Coefficient of Variation % 13.8 % (11.5-15.5); Red Blood Count 4.61 m/uL (4.30-5.90)
[2024-09-24 06:32] LABS: Slide Review Reflex No
--- NOTE | 2024-09-24 06:36 | PC.NURSE ---
Admission-7: The patient is cooperative with cares, VSS on RA. LLE cellulitis is outlined. The patient reported moderate throbbing pain throughout the night, see MAR PRN administration. continent of bladder this shift, uses the urinal overnight in bed. Tolerating SBA well with RW due to LLE cellulitis. L AC IV infused ABX this shift. Call light within reach. Bailee LANDA- BSN
[2024-09-24 06:44] LABS: Chloride* 101 mmol/L (96-114); Potassium* 4.2 mmol/L (3.6-5.1); Sodium* 133 mmol/L (135-149)
[2024-09-24 06:46] LABS: Est. Creatinine Clearance* 85.67; Estimated Glomerular Filt Rate 82 ml/min
[2024-09-24 06:47] LABS: Anion Gap 6 mEq/L (7-15); Blood Urea Nitrogen* 19 mg/dL (7-30); Carbon Dioxide* 26 mmol/L (20-32)
[2024-09-24 06:48] LABS: Calcium* 9.2 mg/dL (8.4-10.6); Glucose* 117 mg/dL (60-115)
[2024-09-24 07:04] LABS: C Reactive Protein* 13.9 mg/dL (0.5-1.0)
[2024-09-24 08:00] VITALS: BP 146/85; PULSE 91; RESP 18; TEMP 36.3; O2SAT 94
[2024-09-24] MEDS: SODIUM CHLORIDE 0.9 % (FLUSH) 10 ML SYRINGE 5 ML IVF ×2 (08:40→22:02)
[2024-09-24] MEDS: VANCOMYCIN 1.75 GM/350 ML 1.75 GM/350 ML PIGGYBACK IVPB ×2 (08:40→20:08)
[2024-09-24 10:56] VITALS: BP 128/77; PULSE 79; RESP 16; TEMP 36.6; O2SAT 94
--- NOTE | 2024-09-24 11:51 | P.IMPN_ITS ---
Progress Note: A&P Assessment and plan (1) Bacteremia: Problem details: - GPC, source LLE cellulitis - continue Vancomycin and Zosyn (09/23) 09/23 - remains afebrile. Second set of blood cultures obtained and pending Status: Acute (2) Cellulitis of foot, left: Problem details: -plain film of the foot shows nonspecific severe soft tissue swelling about the foot -venous duplex negative for DVT -continue IV antibiotics, pain management as needed -PT/OT, WBAT Status: Acute (3) Smoker: Problem details: - prn nicotine replacement Status: Acute (4) Type 2 diabetes mellitus in remission: Problem details: - A1C 6.2 05/29, was as high as 6.7 in 2018 - defers accuchecks and SSI, reasonable given A1C Status: Acute (5) COPD (chronic obstructive pulmonary disease): Problem details: - per [facility] chart review, uses Albuterol - Trelegy Rx, cost-prohibitive so not using Status: Acute Time Spent With Patient Total time spent: Total time spent caring for the patient today was 45 minutes. This includes time spent for the visit reviewing the chart, time spent during the visit, time spent after the visit and documentation and planning in coordination of care. Subjective Date Seen: 09/24/24 Interval history: Patient reports not feeling any significantly better since admission but does note that his left lower extremity appears to be less red. No significant pain of that extremity. Denies headache. Occasional dizziness with standing which is chronic. Denies chest pain or shortness of breath. Denies nausea or vomiting, is tolerating orals. Exam Narrative: Exam Narrative: PHYSICAL EXAM General: Pleasant, conversant, NAD Cardiovascular: RRR, S1S2. No pitting edema Pulmonary: CTA bilaterally without rhonchi, rales, expiratory wheezes. No dyspnea on room air Neurological: Alert, answering questions appropriately, cranial nerves intact, no focal findings Extremities: LLE with edema, erythema outlined and recessing from marking. Callus noted left 1st toe without drainage. Neurovascularly intact Skin: Warm, dry. Const: Vital Signs, click to edit/add: Vital Signs - 24 hr 09/23/24 19:04 09/23/24 22:17 09/23/24 22:17 Temperature 98.9 F 98.2 F Pulse Rate [Pulse Oximeter] 66 Pulse Rate [Right Pulse Oximeter] 80 Respiratory Rate 16 22 22 Blood Pressure [Ri ght Arm] 139/80 Blood Pressure [Ri ght Upper Arm] 137/76 Pulse Oximetry 97 93 93 Oxygen Delivery Me thod Room Air Room Air Room Air 09/23/24 23:00 09/24/24 08:00 09/24/24 08:00 Temperature 98.3 F 97.3 F L Pulse Rate [Pulse Oximeter] Pulse Rate [Right Pulse Oximeter] 84 91 Respiratory Rate 20 18 18 Blood Pressure [Ri ght Arm] 132/80 146/85 H Blood Pressure [Ri ght Upper Arm] Pulse Oximetry 94 94 Oxygen Delivery Me thod Room Air Room Air 09/24/24 10:56 Temperature 97.9 F Pulse Rate [Pulse Oximeter] Pulse Rate [Right Pulse Oximeter] 79 Respiratory Rate 16 Blood Pressure [Ri ght Arm] 128/77 Blood Pressure [Ri ght Upper Arm] Pulse Oximetry 94 Oxygen Delivery Me thod Room Air Labs Labs: Laboratory Results - last 24 hr 09/23/24 09/24/24 19:31 05:50 WBC 8.79 7.00 RBC 4.90 4.61 Hgb 13.4 L 12.7 L Hct 42.5 40.1 MCV 87 87 MCH 27 28 MCHC 32 32 RDW Coeff of Simon 13.9 13.8 Plt Count 250 246 Neut % (Auto) 81.5 H 73.0 H Lymph % (Auto) 7.6 L 13.3 L [place] % (Auto) 9.0 10.7 Eos % (Auto) 1.6 2.6 Baso % (Auto) 0.2 0.3 Neut # (Auto) 7.20 H 5.10 Lymph # (Auto) 0.70 L 0.90 [place] # (Auto) 0.80 0.70 Eos # (Auto) 0.14 0.18 Baso # (Auto) 0.02 0.02 Abs Immat Gran (auto) 0.01 0.01 Imm/Tot Granulo (auto) 0.1 0.1 Sodium 135 133 L Potassium 4.2 4.2 Chloride 100 101 Carbon Dioxide 25 26 Anion Gap 10 6 L BUN 25 19 Creatinine 1.2 1.0 Estimated Creat Clear 71.39 85.67 Estimated GFR 66 82 Glucose 134 H 117 H Calcium 9.4 9.2 C-Reactive Protein 15.7 H 13.9 H
[2024-09-24 14:41] VITALS: BP 133/81; PULSE 82; RESP 16; TEMP 36.5; O2SAT 91
--- NOTE | 2024-09-24 17:43 | PC.NURSE ---
Pt alert and oriented. Pt had complaints of pain of a ?2-4. Pt up with SBA with walker and gait belt. Pt has cellulitis on LLE and Left foot. Remained within lines with some receding on LLE.
[2024-09-24 20:08] VITALS: BP 136/95; PULSE 76; RESP 18; TEMP 36.7; O2SAT 93
[2024-09-24] MEDS: ENOXAPARIN 40 MG/0.4 ML INJ SUBCUT (20:12)
[2024-09-24] MEDS: DOCUSATE SODIUM 100 MG CAPSULE PO (22:05)
[2024-09-24 22:47] VITALS: BP 129/97; PULSE 76; RESP 16; TEMP 36.4; O2SAT 93
[2024-09-24 22:50] VITALS: RESP 16
[2024-09-25] VITALS (7 sets, daily range): BP systolic 126–142; BP diastolic 82–94; PULSE 68–81; RESP 16–20; TEMP 36.5–36.8; O2SAT 92–95
[2024-09-25] MEDS: PIPERACILLIN/TAZOBACTAM 3.375 GM in 0.9 % SODIUM CHLORIDE Mini-bag 100 ML IVPB ×4 (03:49→22:44)
[2024-09-25] MEDS: polyethylene glycoL 3350 17 GM PACK PO (04:46)
--- NOTE | 2024-09-25 06:09 | PC.NURSE ---
End of shift [id number]: A&O pleasant and cooperative. VSS and afebrile overnight. Left foot red, warm, and edematous. Rating pain 7-8/10. See eMAR for interventions. Pt reports he has not had BM in almost a week and is starting to get uncomfortable. Colace and MiraLAX given. Up w/ SBA walker and GB. Using call light appropriately.
[2024-09-25 06:39] LABS: Hematocrit 39.3 % (37.0-53.0); Hemoglobin* 12.4 gm/dL (13.5-17.5); Mean Corpuscular HGB Conc 32 gm/dL (32-36); Mean Corpuscular Hemoglobin 28 pg (26-34); Mean Corpuscular Volume 88 fL (80-100); Platelet Count* 252 K/uL (140-440); Red Blood Count 4.48 m/uL (4.30-5.90); White Blood Count* 7.46 K/uL (4.50-11.00)
[2024-09-25 06:51] LABS: Chloride* 101 mmol/L (96-114); Potassium* 4.1 mmol/L (3.6-5.1); Sodium* 135 mmol/L (135-149)
[2024-09-25 06:54] LABS: Anion Gap 7 mEq/L (7-15); Blood Urea Nitrogen* 18 mg/dL (7-30); Calcium* 9.1 mg/dL (8.4-10.6); Carbon Dioxide* 27 mmol/L (20-32); Creatinine* 0.9 mg/dL (0.5-1.5); Est. Creatinine Clearance* 85.67; Estimated Glomerular Filt Rate 94 ml/min; Glucose* 145 mg/dL (60-115)
[2024-09-25 06:56] LABS: Slide Review Reflex No
[2024-09-25] MEDS: VANCOMYCIN 1.75 GM/350 ML 1.75 GM/350 ML PIGGYBACK IVPB ×2 (08:21→20:35)
[2024-09-25] MEDS: SODIUM CHLORIDE 0.9 % (FLUSH) 10 ML SYRINGE 5 ML IVF ×2 (08:22→20:38)
--- NOTE | 2024-09-25 10:35 | PC.SOCIAL ---
Social work product marketing intern met with pt to complete a discharge planning assessment. Pt is not interested in speaking with social work at this time or learning about any resources. Pt knows how to contact social work in the future if he would ever like to. Social work to follow up as needed.
--- NOTE | 2024-09-25 12:42 | PM.IMPN1 ---
Progress Note: A&P Assessment and plan (1) Bacteremia: Problem details: - GPC, source LLE cellulitis - continue Vancomycin and Zosyn (09/23) 09/24 - remains afebrile. Second set of blood cultures obtained and pending 09/25 1st blood culture from 09/22 growing staphylococci saprophyticus. Due to culture bottle shortage only 1 was obtained at that time. Very likely a contaminant. Repeat blood cultures on 09/23 x2 as well as 09/24 all show no growth after 24 hours. Status: Ruled-out (2) Cellulitis of foot, left: Problem details: -plain film of the foot shows nonspecific severe soft tissue swelling about the foot -venous duplex negative for DVT -continue IV antibiotics, pain management as needed -PT/OT, WBAT 09/25 continue IV antibiotics, likely transition to oral with plan for discharge tomorrow 09/26. Continue to work with therapies, increasing mobility and stamina to return home alone Status: Acute (3) Smoker: Problem details: - prn nicotine replacement Status: Acute (4) Type 2 diabetes mellitus in remission: Problem details: - A1C 6.2 05/29, was as high as 6.7 in 2018 - defers accuchecks and SSI, reasonable given A1C Status: Acute (5) COPD (chronic obstructive pulmonary disease): Problem details: - per [facility] chart review, uses Albuterol - Trelegy Rx, cost-prohibitive so not using Status: Acute Plan Possible discharge 09/26 Time Spent With Patient Total time spent: Total time spent caring for the patient today was 45 minutes. This includes time spent for the visit reviewing the chart, time spent during the visit, time spent after the visit and documentation and planning in coordination of care. Subjective Date Seen: 10/09/24 Interval history: Patient is seen sitting up on edge of bed eating breakfast this morning. Feels better this morning. Still quite fatigued. Slowly increasing his mobility. Redness of left lower extremity continues to improve. Remains afebrile. No leukocytosis. Exam Narrative: Exam Narrative: PHYSICAL EXAM General: Pleasant, conversant, NAD Cardiovascular: RRR, S1S2. No pitting edema Pulmonary: CTA bilaterally without rhonchi, rales, expiratory wheezes. No dyspnea on room air Neurological: Alert, answering questions appropriately, cranial nerves intact, no focal findings Extremities: LLE with edema, erythema outlined and continues to recess from marking. Callus noted left 1st toe without drainage. Neurovascularly intact Skin: Warm, dry. Const: Vital Signs, click to edit/add: Vital Signs - 24 hr 09/24/24 14:41 09/24/24 20:08 09/24/24 22:47 Temperature 97.7 F 98.0 F 97.5 F L Pulse Rate [Right Pulse Oximeter] 82 76 76 Respiratory Rate 16 18 16 Blood Pressure [Ri ght Arm] 133/81 136/95 H 129/97 H Pulse Oximetry 91 93 93 Oxygen Delivery Me thod Room Air Room Air Room Air 09/24/24 22:50 09/25/24 03:52 09/25/24 08:00 Temperature 97.9 F Pulse Rate [Right Pulse Oximeter] 73 76 Respiratory Rate 16 20 18 Blood Pressure [Ri ght Arm] 130/82 Pulse Oximetry 92 Oxygen Delivery Me thod Room Air 09/25/24 08:10 09/25/24 10:59 Temperature 98.0 F 97.8 F Pulse Rate [Right Pulse Oximeter] 76 68 Respiratory Rate 18 16 Blood Pressure [Ri ght Arm] 142/94 H 138/88 Pulse Oximetry 92 94 Oxygen Delivery Me thod Room Air Labs Labs: Laboratory Results - last 24 hr 09/25/24 05:26 WBC 7.46 RBC 4.48 Hgb 12.4 L Hct 39.3 MCV 88 MCH 28 MCHC 32 Plt Count 252 Sodium 135 Potassium 4.1 Chloride 101 Carbon Dioxide 27 Anion Gap 7 BUN 18 Creatinine 0.9 Estimated Creat Clear 85.67 Estimated GFR 94 Glucose 145 H Calcium 9.1
--- NOTE | 2024-09-25 15:28 | PC.NURSE ---
Pt alert, oriented and vitally stable. Pt has?left foot edema, pitting +4, though is able to bare weight. Pt up in saini via 1a, tolerates well. Pt up via SBA. ?Pt on regular diet and tolerates well. Pt elevating left leg as tolerated. Call light within reach.
[2024-09-25] MEDS: ENOXAPARIN 40 MG/0.4 ML INJ SUBCUT (20:39)
--- NOTE | 2024-09-25 23:25 | PC.NURSE ---
Shift Note: Pt friendly and cooperative. VS WNL and LS diminished/coarse on auscultation, particularly on the right side throughout. Rates pain to left foot 5-7/10. He has declined narcotics d/t constipation and stated he won't take Tylenol or Ibuprofen because he used them daily for too many years. Pt states he is tolerating the pain at this time. Erythema to LLE markedly improved from initial outline although +3 edema to the top of the foot is still present. Left leg elevated above the heart on 3 pillows. Lotion applied from distal foot to proximal knee and aqua-k pad applied. Ambulated hallway x1 this evening approximately 200ft. 1 moderate hard formed BM, pt declined additional miralax or colace at HS.
[2024-09-25] MEDS: OXYCODONE 5 MG TABLET PO (23:31)
[2024-09-25] MEDS: DOCUSATE SODIUM 100 MG CAPSULE PO (23:31)
[2024-09-26] MEDS: PIPERACILLIN/TAZOBACTAM 3.375 GM in 0.9 % SODIUM CHLORIDE Mini-bag 100 ML IVPB (03:56)
[2024-09-26 03:57] VITALS: BP 133/84; PULSE 80; RESP 18; TEMP 36.5; O2SAT 93
--- NOTE | 2024-09-26 06:28 | PC.NURSE ---
End of shift [id number]: A&O pleasant and cooperative. VSS and afebrile overnight. Left foot red, warm, and edematous. Rating pain 6-7/10. See eMAR for interventions. Pt reports concerns about getting home d/t finances stating ?I can?t afford to stay here (in the hospital) much longer?. Per social work note pt declined services.
[2024-09-26 06:40] LABS: Hematocrit 40.3 % (37.0-53.0); Hemoglobin* 12.7 gm/dL (13.5-17.5); Mean Corpuscular HGB Conc 32 gm/dL (32-36); Mean Corpuscular Hemoglobin 27 pg (26-34); Mean Corpuscular Volume 87 fL (80-100); Platelet Count* 279 K/uL (140-440); Red Blood Count 4.63 m/uL (4.30-5.90); White Blood Count* 6.78 K/uL (4.50-11.00)
[2024-09-26 06:43] LABS: Slide Review Reflex No
[2024-09-26 06:55] LABS: Chloride* 106 mmol/L (96-114); Potassium* 4.5 mmol/L (3.6-5.1); Sodium* 135 mmol/L (135-149)
[2024-09-26 06:57] LABS: Creatinine* 0.8 mg/dL (0.5-1.5); Est. Creatinine Clearance* 85.67; Estimated Glomerular Filt Rate 97 ml/min
[2024-09-26 06:58] LABS: Anion Gap 6 mEq/L (7-15); Blood Urea Nitrogen* 17 mg/dL (7-30); Calcium* 9.2 mg/dL (8.4-10.6); Carbon Dioxide* 23 mmol/L (20-32); Glucose* 99 mg/dL (60-115)
[2024-09-26 07:00] VITALS: PULSE 78; RESP 16
[2024-09-26 08:00] VITALS: BP 135/87; PULSE 78; RESP 16; TEMP 36.4; O2SAT 93
[2024-09-26] MEDS: VANCOMYCIN 1.75 GM/350 ML 1.75 GM/350 ML PIGGYBACK IVPB (08:15)
--- NOTE | 2024-09-26 09:51 | P.DS_ITS ---
DS: Providers Provider Date Seen: 09/26/24 Date of admission: 09/23/24 21:11 Primary care physician: Nas Falk MD Admitting Clinician: Kira Antonio MD Consults: 09/23/24 20:31 Consult to Physical Therapy [CONS] Routine Comment: Reason(s) for PT Consult:: Evaluate and Treat Any Restrictions?:: No Restrictions 09/23/24 20:33 Consult to Occupational Therapy [CONS] Routine Comment: Reason(s) for OT Consult:: Evaluate and Treat Any Restrictions?:: No Restrictions Attending Physician on discharge: FCO Felton, PATelmaC [facility] Date of Discharge: 09/26/24 DS: Diagnosis Discharge Diagnosis (1) Bacteremia: Status: Ruled-out Problem details: - GPC, source LLE cellulitis - continue Vancomycin and Zosyn (09/23) 09/24 - remains afebrile. Second set of blood cultures obtained and pending Upon discharge, 1st blood culture from 09/22 growing staphylococci saprophyticus. Due to culture bottle shortage only 1 was obtained at that time. Suspected likely a contaminant. Repeat blood cultures on 09/23 x2 as well as 09/24 all show no growth after 24 hours. (2) Cellulitis of foot, left: Status: Acute Problem details: -plain film of the foot shows nonspecific severe soft tissue swelling about the foot -venous duplex negative for DVT -continue IV antibiotics, pain management as needed -PT/OT, WBAT During hospital course was continued on IV antibiotics, transitioned to oral doxycycline upon discharge to complete 10 day course antibiotic therapy given failed outpatient therapy. Close follow-up with PCP for resolution. (3) Smoker: Status: Acute Problem details: - prn nicotine replacement (4) Type 2 diabetes mellitus in remission: Status: Acute Problem details: - A1C 6.2 05/29, was as high as 6.7 in 2018 (5) COPD (chronic obstructive pulmonary disease): Status: Acute Problem details: - per [facility] chart review, uses Albuterol - Trelegy Rx, cost-prohibitive so not using DS: Summary Hospital Course Hospital Course: [age] year old male was admitted to the medical floor for IV antibiotic management left lower extremity cellulitis following failed outpatient course. Course of care and details as noted above. Remainder of chronic medical comorbidities were monitored and managed with home medications. Status at Discharge Functional status at discharge: uses cane/walker Overall status at discharge: patient is back to baseline Time Spent with Patient Time attestation: Total time spent providing and/or coordinating discharge services: Time spent: Greater than 30 minutes Exam Narrative: Exam Narrative: PHYSICAL EXAM General: Pleasant, conversant, NAD Cardiovascular: RRR Pulmonary: No dyspnea Neurological: Alert, answering questions appropriately Extremities: Continued improvement of erythema and edema LLE. No streaking Skin: Warm, dry. Const: Vital Signs, click to edit/add: Vital Signs - 24 hr 09/25/24 10:59 09/25/24 15:00 09/25/24 15:00 Temperature 97.8 F 97.8 F Pulse Rate [Right Pulse Oximeter] 68 78 78 Respiratory Rate 16 20 20 Blood Pressure [Ri ght Arm] 138/88 132/84 Pulse Oximetry 94 95 Oxygen Delivery Me thod Room Air Room Air 09/25/24 19:00 09/25/24 23:27 09/26/24 03:57 Temperature 98.2 F 97.7 F 97.7 F Pulse Rate [Right Pulse Oximeter] 81 77 80 Respiratory Rate 20 18 18 Blood Pressure [Ri ght Arm] 141/92 H 126/83 133/84 Pulse Oximetry 95 94 93 Oxygen Delivery Me thod Room Air Room Air 09/26/24 08:00 Temperature 97.6 F Pulse Rate [Right Pulse Oximeter] 78 Respiratory Rate 16 Blood Pressure [Ri ght Arm] 135/87 Pulse Oximetry 93 Oxygen Delivery Me thod Room Air DS: Data Data Completed and Pending Labs on day of discharge: Labs from last 24 hours 09/26/24 05:57 WBC 6.78 RBC 4.63 Hgb 12.7 L Hct 40.3 MCV 87 MCH 27 MCHC 32 Plt Count 279 Sodium 135 Potassium 4.5 Chloride 106 Carbon Dioxide 23 Anion Gap 6 L BUN 17 Creatinine 0.8 Estimated Creat Clear 85.67 Estimated GFR 97 Glucose 99 Calcium 9.2 Preliminary micro results at discharge 09/24/24 05:50 Blood Culture - Preliminary Blood NO GROWTH AFTER 48 HOURS 09/23/24 19:36 Blood Culture - Preliminary Blood NO GROWTH AFTER 48 HOURS 09/23/24 19:31 Blood Culture - Preliminary Blood NO GROWTH AFTER 48 HOURS Discharge Plan Discharge Disposition: Home, Self-Care Date of Admission: 09/23/24 21:11 Attending Provider on Discharge: Vero Collier Discharge Medications: New doxycycline hyclate 100 mg capsule 100 mg PO BID Qty: 14 0RF Continued albuterol sulfate 90 mcg/actuation HFA aerosol inhaler 1 - 2 puff INHALATION Q4H PRN (Reason: dyspnea) sildenafil 100 mg tablet 100 mg PO DAILY PRN Discontinued amoxicillin-pot clavulanate 875-125 mg tablet 1 tab PO BID sulfamethoxazole-trimethoprim [Bactrim DS] 800-160 mg tablet 1 tab PO BID Discharge Orders: Discharge Order (Routine); Ordered 09/26/24 Ordered By: Vero Collier Patient Education: Doxycycline (By mouth), Cellulitis (GEN) Activity Level: No Restrictions Discharge Diet: Regular Follow Up Appointments: Nas Falk MD [Primary Care Provider] - (post hospital follow up 3-5 days) [facility]: [facility]
--- NOTE | 2024-09-26 12:38 | PC.NURSE ---
DC: pt alert, oriented and vitally stable. Pt up via SBA and tolerates well. Pt ice and elevating as tolerated. Pt DC education given to pt and family member, topics including follow up and medications. DC pt at 1153 with brother.
== END 2024-09-26 11:53 | disposition home or self-care (01) | DRG 603 ==
LOC: ED 19:42 → MEDSURG 21:01 → ED 21:11 → MEDSURG 21:11
PROVIDERS: Physician Assistant; Admitting Provider Family Medicine; Emergency Provider Emergency Medicine; PCP Family Medicine; Visit Provider Family Medicine
DX: L03.116 Cellulitis of left lower limb (principal); J44.9 Chronic obstructive pulmonary disease, unspecified; F17.200 Nicotine dependence, unspecified, uncomplicated; G25.0 Essential tremor; E11.9 Type 2 diabetes mellitus without complications
CPT/HCPCS: 36415; 73630; 80048; 83605; 85025; 85027; 86140; 87040; 87186; 93971; 96365; 97110; 97116; 97162; 97165; 99284; 99285; A9270; J1650; J2543; J3372

== ENCOUNTER 2025-06-19 09:31 | Inpatient (IN) | payer MEDICARE, SELFPAY ==
--- OUTSIDE RECORDS SUMMARY | 2025-06-19 09:33 | XMS_ITS | Continuity of Care Document ---
Author Name [facility] Organization [facility] Care Team Providers Care Vice President Consulting Services Name Role Phone [facility] Unavailable Unavailable Social History Combined list of available smoking, tobacco, and other social history from Department of Defense and Veterans Affairs facilities. Social History Type Response Date Comment Sourc e This section is an empty social history section. DoD
--- OUTSIDE RECORDS SUMMARY | 2025-06-19 09:33 | XMS_ITS | Continuity of Care Document ---
Author Name [facility] Organization [facility] Care Team Providers Care Size Tester Name Role Phone [facility] Unavailable Unavailable Social History Combined list of available smoking, tobacco, and other social history from Department of Defense and Veterans Affairs facilities. Social History Type Response Date Comment Sourc e This section is an empty social history section. DoD
--- OUTSIDE RECORDS SUMMARY | 2025-06-19 09:35 | XMS_ITS | Clinical Summary ---
Author Organization [facility] Address [address] [place] [id number] Care Team Providers Care Home Extension Agent Name Role Phone Nas Falk MD Primary Care Provider [phone] Allergies No known active allergies Medications albuterol HFA (PRO-AIR; VENTOLIN; PROVENTIL) 90 mcg/actuation inhalerIndicati ons:Cough, unspecified type,Acute dyspnea Inhale 1-2 Puffs by mouth every 4 hours if needed for Shortness Of Breath. 18 g 6 05/27/20 24 Active sildenafil citrate (VIAGRA) 100 mg tabletIndicatio ns:Erectile dysfunction, unspecified erectile dysfunction type Take 1 Tablet (100 mg) by mouth once daily if needed for Erectile Dysfunction. Take 30min to 4 hours before sexual activity. Max 100mg/24hr. 6 Tablet 11 05/27/20 24 Active HYDROcodone-lashaun taminophen (5-325 mg/tablet)Indic ations:Foot pain, right,Severe pain Take 1 Tablet by mouth every 6 hours if needed for Pain. Max acetaminophen dose: 4000 mg in 24 hrs. 20 Tablet 06/16/20 25 Active doxycycline 100 mg tabletIndicatio ns:Cellulitis of right foot Take 1 Tablet (100 mg) by mouth two times daily before meals. 14 Tablet 06/16/20 25 Active fluticasone fur-umeclidiniu m-vilanterol (TRELEGY ELLIPTA) 100-62.5-25 mcg inhalerIndicati ons:Chronic obstructive pulmonary disease, unspecified COPD type (HC) Inhale 1 Puff by mouth once daily. Rinse mouth after use 180 Each 3 05/27/20 24 025 Discontin ued(*Chelsie ent states no longer taking) propranolol ER (INDERAL LA) 60 mg Cs24 Sustained-Relea se capsuleIndicati ons:Tremor Take 1 Capsule (60 mg) by mouth once daily. 90 Capsule 3 05/27/20 24 025 Discontin ued(*Chelsie ent states no longer taking) doxycycline hyclate 100 mg capsule Take 100 mg by mouth two times daily. 7 days ending 10/0409/26/20 24 025 Discontin ued(*Chelsie ent states no longer taking) doxycycline 100 mg tabletIndicatio ns:Cellulitis of right foot Take 1 Tablet (100 mg) by mouth two times daily before meals for 7 days. 14 Tablet 06/16/20 25 025 Discontin ued(Reord er (E-cancel not sent)) HYDROcodone-lashaun taminophen (5-325 mg/tablet)Indic ations:Foot pain, right Take 1 Tablet by mouth every 6 hours if needed for Pain. Max acetaminophen dose: 4000 mg in 24 hrs. 20 Tablet 06/16/20 25 025 Discontin ued(Reord er (E-cancel not sent)) doxycycline 100 mg tabletIndicatio ns:Cellulitis of right foot Take 1 Tablet (100 mg) by mouth two times daily before meals. 14 Tablet 06/16/20 25 025 Discontin ued(Reord er (E-cancel not sent)) HYDROcodone-lashaun taminophen (5-325 mg/tablet)Indic ations:Foot pain, right,Severe pain Take 1 Tablet by mouth every 6 hours if needed for Pain. Max acetaminophen dose: 4000 mg in 24 hrs. 20 Tablet 06/16/20 25 025 Discontin ued(Reord er (E-cancel not sent)) Active Problems Problem Noted Date Diagnosed Date Cellulitis of foot, left 10/02/2024 Overview (10/02/2024): -plain film of the foot shows nonspecific severe soft tissue swelling about the foot -venous duplex negative for DVT -continue IV antibiotics, pain management as needed -PT/OT, WBAT During hospital course was continued on IV antibiotics, transitioned to oral doxycycline upon discharge to complete 10 day course antibiotic therapy given failed outpatient therapy. Close follow-up with PCP for resolution. Type 2 diabetes mellitus in remission 10/02/2024 Overview (10/02/2024): - A1C 6.2 05/29, was as high as 6.7 in 2018 Essential tremor 10/02/2024 Overview (10/02/2024): - did not do well with trial of Inderal Smoker 10/02/2024 Overview (10/02/2024): - prn nicotine replacement Chronic obstructive pulmonar y disease, unspecified COPD type 05/27/2024 Colon polyp, hyperplastic 09/30/2014 Tobacco dependence 09/03/2014 Unspecified hearing loss 06/05/2008 Encounters Date Type Department Care Team Description 06/16/2025 5:25 PM CDT Ancillary Procedure [address] [address] Arrived 06/16/2025 3:00 PM CDT Office Visit [address] [address] Liz Sabillon MD Pain (Right foot) 06/16/2025 Travel 06/16/2025 Nurse Triage [address] [address] Nas Falk MD Foot Pain/problem from Last 3 Months Immunizations Immunization Administration Dates Next Due COVID-19 vaccine (Moderna [...] is your housing situation today? 1 05/27/2024 Interpersonal Safety Answer Date Record ed Are you being hit, kicked, p ushed or yelled at (see row info)? No 09/19/2024 Interpersonal Safety Abuse 12 - 18 Not on file 09/19/2024 Interpersonal Safety Ambulatory Vulnerability No t on file 09/19/2024 Utilities Answer Date Recorded Do you have trouble paying f or utilities (for example, heat, electricity, water, phone)? 1 05/27/2024 Sex and Gender Information Value Date Recorded Sex Assigned at Not on file Legal Sex Male 5:23 AM SPECIAL EFFECTS TECHNICIAN Gender Identity Not on file Sexual Orientation Not on file Obstetrics History Last Filed Vital Signs Vital Sign Reading Time Taken Comments Blood Pressure 130/84 06/16/2025 4:03 PM CDT Pulse 88 06/16/2025 4:03 PM CDT Temperature 37 C (98.6 F) 10/02/2024 9:46 AM SPECIAL EFFECTS TECHNICIAN Respiratory Rate 16 09/19/2024 8:49 AM SPECIAL EFFECTS TECHNICIAN Oxygen Saturation 96% 09/19/2024 10:20 AM SPECIAL EFFECTS TECHNICIAN Inhaled Oxygen Concentration - - Weight 113.2 kg (249 lb 8 oz) 06/16/2025 4:03 PM CDT Height 188 cm (6' 2) 09/19/2024 8:49 AM SPECIAL EFFECTS TECHNICIAN Body Mass Index 32.03 09/19/2024 8:49 AM SPECIAL EFFECTS TECHNICIAN Plan of Treatment Health Maintenance Due Date Last Done Comments Zoster (shingles) series for age 50+ (1 of 2) 2006 RSV vaccine for adults or (1 - Risk 60-74 years 1-dose series) 2016 Colonoscopy through age 75 09/23/2019 09/23/2014 AAA screening age 65-74 2021 COVID-19 vaccine series ( season) 2024 12/07/2021, 02/24/2021, 01/27/2021 Tetanus booster 08/25/2024 08/25/2014 BMI (ht and wt on same day) for age 18+ 05/27/2025 05/27/2024, 11/25/2022, 04/29/2019, Additional history exists Medicare Wellness for age 65+ 05/28/2025 05/27/2024, 11/25/2022, 08/15/2018 Depression screening for age 12+ 05/29/2025 05/29/2024, 05/27/2024, 11/25/2022, Additional history exists Influenza Vaccine (#1) 2025 Lipids for age 45-75 05/27/2029 05/27/2024, 11/25/2022, 08/15/2018, Additional history exists Hepatitis C screening for age 18-79 Completed 08/15/2018 Pneumococcal series for age 50+ Completed 11/25/2022 Hepatitis B series for 19+ Aged Out N o longer eligible based on patient's age to complete this topic Procedures Procedure Name Priority Date/Time Associated Diagnosis Comments XR ANKLE 3 VIEWS RIGHT Routine 06/16/2025 5:28 PM CDT Acute right ankle pain URIC ACID Routine 06/16/2025 5:14 PM CDT Foot pain, right CBC WITH AUTO DIFFERENTIAL STAT 06/16/2025 5:09 PM CDT Foot pain, right D-DIMER,QUANTITATIVE STAT 06/16/2025 5:09 PM CDT Right leg swelling C-REACTIVE PROTEIN STAT 06/16/2025 5: 09 PM CDT Foot pain, right CBC WITH AUTO DIFFERENTIAL STAT 06/16/2025 5:09 PM CDT Foot pain, right LIPID PANEL W REFLEX MEASURED LDL Routine 05/27/2024 9:25 AM CDT Hyperlipidemia, unspecified hyperlipidemia type ANTI HCV Routine 08/15/2018 3:53 PM CDT Need for hepatitis C screening test from Last 3 Months or Most Recently Relevant to Health Maintenance Results * XR ANKLE 3 VIEWS RIGHT (06/16/2025 5:28 PM CDT) Anatomical Region Laterality Modality ANKLES, ANKLE R Computed Radiogr aphy 06/17/2025 6:44 AM CDT Narrative 06/17/2025 6:44 AM CDT For Patients: As a result of the Century Cures Act, medical imaging exams and procedure reports are released immediately into your electronic medical record. You may view this report before your referring provider. If you have questions, please contact your health care provider. INDICATION: Acute right ankle pain. TECHNIQUE: Three views right ankle. COMPARISON: 04/29/2019. FINDINGS: Prominent diffuse soft tissue swelling over the ankle and of the lower extremity. There is a triangular density inferior to the medial malleolus which is more likely calcification in a ligament due to old injury, than an acute avulsion fracture. No other underlying fracture, dislocation or abnormal ankle mortise spacing. Dictated by Angelique Greenwood MD @ 06/17/2025 6:44:08 AM (Electronically Signed) Procedure Note Cortez Greenwood MD - 06/17/2025 For Patients: As a result of the Cures Act, medical imagingexams and procedure reports are released immediately into your electronicmedical record. You may view this report before your referring provider.If you have questions, please contact your health care provider. INDICATION: Acute right ankle pain. TECHNIQUE: Three views right ankle. COMPARISON: 04/29/2019. FINDINGS: Prominent diffuse soft tissue swelling over the ankle and of the lowerextremity. There is a triangular density inferior to the medial malleolus which ismore likely calcification in a ligament due to old injury, than an acuteavulsion fracture. No other underlying fracture, dislocation or abnormal ankle mortisespacing. Dictated by Angelique Greenwood MD @ 06/17/2025 6:44:08 AM (Electronically Signed) Liz Sabillon MD GENERAL IMAGING Final Res ult * URIC ACID (06/16/2025 5:14 PM CDT) Pathologist [facility] URIC ACID 7.4 4.0 - 8.0 mg/dL [employer] [facility] Comment: Therapeutic target for gout patients: <6.0 mg/dL Blood BLOOD SPECIMEN / Unknown 06/16/2025 5:14 PM CDT 06/16/2025 5:14 PM CDT Liz Sabillon MD CHEMISTRY Final Res ult [employer] [facility] [address] [place] [address], [employer] [facility] [address] [place] [address] * (ABNORMAL) CBC WITH AUTO DIFFERENTIAL (06/16/2025 5:09 PM CDT) WHITE BLOOD COUNT 10.6 4.5 - 11.0 thou/cu mm 06/16/2025 5:42 PM CDT [facility] RED BLOOD COUNT 5.07 4.30 - 5.90 mil/cu mm 06/16/2025 5:42 PM CDT [facility] HEMOGLOBIN 14.1 13.5 - 17.5 g/dL 06/16/2025 5:[address] [facility] HEMATOCRIT 44.0 37.0 - 53.0 % 06/16/2025 5:[address] [facility] MCV 87 80 - 100 fL 06/16/2025 5:[address] [facility] MCH 27.8 26.0 - 34.0 pg 06/16/2025 5:[address] [facility] MCHC 32.0 32.0 - 36.0 g/dL 06/16/2025 5:[address] [facility] RDW 14.2 11.5 - 15.5 % 06/16/2025 5:[address] [facility] PLATELET COUNT 226 140 - 440 thou/cu mm 06/16/2025 5:[address] [facility] MPV 10.3 6.5 - 11.0 fL 06/16/2025 5:[address] [facility] % NEUT 85.6 % 06/16/2025 5:[address] [facility] % LYMPH 5.0 % 06/16/2025 5:[address] [facility] % MONO 9.0 % 06/16/2025 5:[address] [facility] % EOS 0.3 % 06/16/2025 5:[address] [facility] % BASO 0.1 % 06/16/2025 5:[address] [facility] ABSOLUTE NEUTROPHILS 9.1(H) 1.7 - 7.0 thou/cu mm 06/16/2025 5:[address] [facility] ABSOLUTE LYMPHOCYTES 0.5(L) 0.9 - 2.9 thou/cu mm 06/16/2025 5:[address] [facility] ABSOLUTE MONOCYTES 1.0(H) <0.9 thou/cu mm 06/16/2025 5:[address] [facility] ABSOLUTE EOSINOPHILS 0.0 <0.5 thou/cu mm 06/16/2025 5:[address] [facility] ABSOLUTE BASOPHILS 0.0 <0.3 thou/cu mm 06/16/2025 5:42 PM CDT [facility] Blood BLOOD SPECIMEN / Unknown [facility] / Unknown 06/16/2025 5:09 PM CDT 06/16/2025 5:09 PM CDT Liz Sabillon MD HEMATOLOGY Final Res ult Performing Organization Address City/[facility]/ZIP Co de Phone Number [facility] [address] [place] [address] * (ABNORMAL) STAT C-Reactive Protein CRP (06/16/2025 5:09 PM CDT) C-REACTIVE PROTEIN 9.6(H) <0.5 mg/dL 06/16/2025 5:56 PM CDT [facility] Blood BLOOD SPECIMEN / Unknown [facility] / Unknown 06/16/2025 5:09 PM CDT 06/16/2025 5:09 PM CDT Liz Sabillon MD CHEMISTRY Final Res ult Performing Organization Address City/[facility] Co de Phone Number [facility] [address] [place] [address] * STAT D-Dimer, Quantitative (06/16/2025 5:09 PM CDT) D-DIMER,QUANTI TATIVE 0.33 See comment FEU mcg/mL 06/16/2025 5:47 PM CDT [facility] Blood BLOOD SPECIMEN / Unknown [facility] / Unknown 06/16/2025 5:09 PM CDT 06/16/2025 5:09 PM CDT Narrative [facility] - 06/16/2025 5:47 PM CDT The cut off value for exclusion of Deep Vein Thrombosis and / or Pulmonary Embolism is 0.50 FEU mcg/mL For patients greater than 50 years of age the upper limit is age dependent and was calculated with the formula: (PATIENT AGE x 0.01) FEU mcg/mL = Upper limit of normal range us Liz Sabillon MD HEMATOLOGY Final Res ult Performing Organization Address City/[facility]/ZIP Co de Phone Number [facility] [address] [place] [address] * LIPID PANEL W REFLEX MEASURED LDL (05/27/2024 9:25 AM CDT) CHOLESTEROL,TOTAL 172 100 - 199 mg/dL 05/27/2024 10:[address] [facility] Comment: Cholesterol, Total Reference Ranges Desirable <200 mg/dL Borderline 200-239 mg/dL High >=240 mg/dL TRIGLYCERIDES 60 <150 mg/dL 05/27/2024 10:[address] [facility] HDL CHOLESTEROL 53 >40 mg/dL 10:[address] [facility] NON-HDL CHOLESTEROL 119 <145 mg/dl 05/27/2024 10:[address] [facility] CHOL/HDL RATIO 3.25 <4.50 05/27/2024 10:[address] [facility] LDL CHOLESTEROL 107 <=130 mg/dL 05/27/2024 10:[address] [facility] VLDL CHOLESTEROL 12 <=30 mg/dL 05/27/2024 10:[address] [facility] PROVIDER ORDERED STATUS RANDOM 05/27/2024 10:[address] [facility] Blood BLOOD SPECIMEN / Unknown Venipuncture / Unknown 05/27/2024 9:25 AM CDT 05/27/2024 9:28 AM CDT us Nas Falk MD CHEMISTRY Final Resul t Performing Organization Address City/[facility]/ZIP Co de Phone Number [facility] [address] [place] [address] * ANTI HCV [06991.2] (08/15/2018 3:53 PM CDT) HEPATITIS C ANTIBODY Non-React anjali Non-React anjali 08/15/2018 9:18 PM CDT [facility] Comment:Antibodies to HCV no t detected; does not exclude the possibility of exposure to HCV. Blood BLOOD SPECIMEN / Unknown Venipuncture / Unknown 08/15/2018 3:53 PM CDT 08/15/2018 3:56 PM CDT us Nas Falk MD SEND OUTS Final Resul t [facility] [address] [place] [address], [place] from Last 3 Months or Most Recently Relevant to Health Maintenance Insurance [facility] MEDICARE PART B HB ONLY [facility] Advance Directives * Full Code (Latest Code Status on File) Date Activated Date Inactivated Comments 09/23/2014 4:32 PM 09/23/2014 7:09 PM * Full Code Date Activated Date Inactivated Comments 09/22/2014 5:03 PM 09/23/2014 4:32 PM Care Teams Home Extension Agent Relationship Specialty Start Date End Date Nas Falk MD [address] [facility] Meaghan MILAANITA SWANSON [phone] PCP - General Family Practice 06/12/18
[2025-06-19 09:59] VITALS: BP 141/73; PULSE 79; RESP 20; TEMP 35.8; O2SAT 91; BMI 31.2
--- NOTE | 2025-06-19 11:39 | CRLHL7_ITS ---
For Patients: As a result of the Century Cures Act, medical imaging exams and procedure reports are released immediately into your electronic medical record. You may view this report before your referring provider. If you have questions, please contact your health care provider. Indication: Pain right calf. Technique: Grayscale, grayscale compression, color Doppler, spectral Doppler and augmentation technique was utilized for evaluating the right lower extremity venous system. Comparison: September 22, 2024 Findings: The common femoral vein, greater saphenous vein, deep femoral vein, femoral vein, popliteal vein, peroneal vein and posterior tibial veins were studied. There is no venous thrombosis observed. Calf vein visualization is limited probably due to edema and body habitus. The calf veins were only adequately visualized distally and at the tibioperoneal trunk. Impression: No evidence of deep venous thrombosis. Lack of visualization of some of the calf veins is probably due to edema and body habitus/technical factors. Dictated by Mendoza Pratt MD @ 06/19/2025 12:39:12 PM (Electronically Signed)
--- NOTE | 2025-06-19 11:49 | ED.GENADULT ---
HPI - General Adult General Date Seen: 06/19/25 Chief complaint: Lower Extremity Swelling Stated complaint: swollen leg Time Seen by Provider: 06/19/25 11:46 History of Present Illness HPI narrative: 69 yo M with history previous left foot cellulitis, type 2 diabetes, colon polyps, tremor, tobacco use, COPD. He presents to the ER today with pain and swelling involving his right foot, right ankle, and right distal frances and Achilles. Symptoms began about 7 days ago. He had been at work and was wearing compression stockings and when he took off his compression stockings at evening he was having some pain there. He has no known injury. Per [facility] medical record was seen in the [facility] 3 days ago on 06/16 with severe pain in his right foot (ongoing for 3 days at that time, per notes). Worse when he bears weight. Labs showed a white count of 10.6, hemoglobin 14.1, platelet count 226. 85% neutrophils. D-dimer was 0.33. CRP was 9.6. X-ray of his ankle was negative for acute fracture;FINDINGS: Prominent diffuse soft tissue swelling over the ankle and of the lower extremity. There is a triangular density inferior to the medial malleolus which is more likely calcification in a ligament due to old injury, than an acute avulsion fracture. No other underlying fracture, dislocation or abnormal ankle mortise spacing. Patient reports that he was given doxycycline 100 mg p.o. b.i.d. after his visit to the urgent care on Monday. He has taken a total of 5 doses but notes that his redness and pain in his leg is overall getting slowly worse. He is not feverish. He does have diabetes but is recent A1c is been good, at 6.2. No other immunosuppression. He notes that he has been working hard with his diet and actually has 50 lb of intentional weight loss over past several months. He recalls that his leg was similar to this several months ago when we hospitalized here in [place]. His leg is not quite as angry red this time as it was before but the redness and pain are otherwise similar. He has no known injury. Noting that he is not improving and in fact is getting worse on the doxycycline, he came here to the ER thinking he needs different antibiotics. He recalls me from a previous ER visit. I remember meeting him and recommending admission but he refused. He ultimately had to come back to the ER the following day to get admitted for IV antibiotics. Today, he packed his bags in anticipation of probably needing admission. Related Data Home Medications ?Medication ?Instructions ?Recorded ?Confirmed albuterol sulfate 90 mcg/actuation 1 - 2 puff inhalation Q4H PRN 09/22/24 06/19/25 aerosol inhaler dyspnea sildenafil 100 mg tablet 100 mg PO DAILY PRN 09/24/24 09/24/24 doxycycline hyclate 100 mg tablet 100 mg PO BID 06/19/25 06/19/25 hydrocodone 5 mg-acetaminophen 325 1 tab PO Q6H PRN pain 06/19/25 06/19/25 mg tablet Allergies Allergy/AdvReac Type Severity Reaction Status Date / Time No Known Drug Allergies Allergy Verified 06/19/25 10:06 [facility] Medical History (Updated 06/19/25 @ 13:34 by Artur Harris MD) Smoker ?F17.200 - Nicotine dependence, unspecified, uncomplicated (ICD-10) Essential tremor ?G25.0 - Essential tremor (ICD-10) COPD (chronic obstructive pulmonary disease) ?J44.9 - Chronic obstructive pulmonary disease, unspecified (ICD-10) Type 2 diabetes mellitus in remission ?E11.9 - Type 2 diabetes mellitus without complications (ICD-10) Surgical History (Updated 09/23/24 @ 19:43 by Kira Antonio MD) History of knee replacement ?Z96.659 - Presence of unspecified artificial knee joint (ICD-10) Social History (Updated 09/23/24 @ 20:27 by Kira Antonio MD) Narrative: Retired, lives in [place]. Brother Quan would be MDM if needed. Full Code. Daily smoker, no ETOH use. What is your current living situation?: I presently have a place to live Problems where you live: no known problems Problems where you live details: none In the past 12 months, utilities in danger of being shut off: no In past 12 months, lack of transportation kept you from medical appts, meetings, work, or getting things needed for daily living: no In the past 12 mos, have been you worried that your food would run out before you had money to buy more?: never true In the past 12 mos, the food you bought just didn't last and you didn't have money to buy more?: never true Smoking Status: Current every day smoker What tobacco products do you use: cigarettes How often do you have a drink containing alcohol: never AUDIT-C Alcohol total score: 0 Non-prescribed substance use: denies use How often does anyone, including family, friends and others, physically hurt you: never How often does anyone, including family, friends and others, insult or talk down to you: never How often does anyone, including family, friends and others, threaten you with harm: never How often does anyone, including family, friends and others, scream or curse at you: never service: No Exam Narrative: Exam Narrative: Constitutional: Appears well-developed and well-nourished. Alert. Conversant. Non toxic. HENT: Head: Atraumatic. Nose: Nose normal. Mouth/Throat: Oral mucosa is clear and moist. no trismus. Pharynx normal. Tonsils symmetric. No tonsillar enlargement, erythema, or exudate. Eyes: Conjunctivae normal. EOM normal. Pupils equal, round, and reactive to light. No scleral icterus. Neck: Normal range of motion. Neck supple. No tracheal deviation present. Cardiovascular: Normal rate, regular rhythm. No gallop. No friction rub. No murmur heard. Symmetric radial and DP artery pulses Pulmonary/Chest: Effort normal. No stridor. No respiratory distress. No wheezes. No rales. No rhonchi . No tenderness. Abdominal: Soft.No distension. No mass. No tenderness. No rebound. No guarding. Musculoskeletal: RUE: Normal range of motion. No tenderness. No deformity LUE: Normal range of motion. No tenderness. No deformity RLE: He does have edema and erythema affecting his right foot and ankle and posterior calf. Fairly warm it erythema on the posterior ankle in calf. No definite ankle joint effusion to suggest a septic arthritis. Normal plantar flexion and dorsiflexion of the ankle. Normal flexion and tension of the knee. No palpable fluctuance or crepitus or acute palpable gas in the soft tissue. Normal range of motion. No edema. No tenderness. No deformity LLE: Normal range of motion. No edema. No tenderness. No deformity Lymph: No ascending lymphangitis. Neurological: Alert and oriented to person, place, and time. Normal strength. CN II-VII intact. No sensory deficit. GCS eye subscore is 4. GCS verbal subscore is 5. GCS motor subscore is 6. Normal coordination Skin: Skin is warm and dry. No rash noted. No pallor. Normal capillary refill. Psychiatric: Normal mood. Normal affect. Polite Const: Vital Signs, click to edit/add: Vital Signs - 24 hr 06/19/25 09:59 Temperature 96.4 F L Pulse Rate [Pulse Oximeter] 79 Respiratory Rate 20 Blood Pressure [Ri ght Upper Arm] 141/73 H Pulse Oximetry 91 Oxygen Delivery Me thod Room Air Course Vital Signs Vital signs: Initial Vital Signs Temperature 96.4 F L 06/19/25 09:59 Temperature Source Temporal Artery Scan 06/19/25 09:59 Pulse Rate 79 06/19/25 09:59 Respiratory Rate 20 06/19/25 09:59 Blood Pressure 141/73 H 06/19/25 09:59 Blood Pressure Mean 95 06/19/25 09:59 Blood Pressure Position Sitting 06/19/25 09:59 Pulse Oximetry 91 06/19/25 09:59 Oxygen Delivery Method Room Air 06/19/25 09:59 Vital Signs Temperature 96.4 F L 06/19/25 09:59 Pulse Rate 79 06/19/25 09:59 Respiratory Rate 20 06/19/25 09:59 Blood Pressure 141/73 H 06/19/25 09:59 Pulse Oximetry 91 06/19/25 09:59 Oxygen Delivery Method Room Air 06/19/25 09:59 Temperature 96.4 F L 06/19/25 09:59 Pulse Rate 79 06/19/25 09:59 Respiratory Rate 20 06/19/25 09:59 Blood Pressure 141/73 H 06/19/25 09:59 Pulse Oximetry 91 06/19/25 09:59 Oxygen Delivery Method Room Air 06/19/25 09:59 Medications Administered Medications: Generic Name Dose Route Start Last Admin Trade Name Freq PRN Reason Stop Dose Admin Vancomycin/PEG/NADA/Lysine/Water 2 gm in 400 mls @ 200 mls/hr 06/19/25 12:05 06/19/25 12:34 Vancomycin 2 Gm/400 Ml IVPB 06/19/25 14:04 200 mls/hr ONCE ONE Administration Protocol Medical Decision Making [facility] Narrative Medical decision making narrative: This patient presents for evaluation of skin redness, with warmth, swelling and pain affecting his right foot, right ankle and right lower extremity about skilled nursing to his right knee. The history, physical exam is consistent with cellulitis. There do not appear at this time to be any complication of cellulitis such as abscess, necrotizing fascitis, lymphangitis, lymphadenitis, osteomyelitis, sepsis, or shock. Ultrasound is negative for DVT. He does have strong DP pulses and normal distal cap refill and no evidence for acute limb ischemia. The patient is not immunosuppressed . He does have diabetes but he reports that his recent A1c is well controlled at 6.2 and blood sugar today is 90. I do not see any evidence for foot or ankle ulcers. Since he has already been on appropriate oral antibiotics since Monday and is getting worse, I think he needs to be admitted for IV antibiotics. Will start him on IV vancomycin. First dose administered here in the ER. Discussed with our hospitalist, Dr. Mcgrath, who graciously will accept him for admission. Patient is agreeable to be admitted. Lab Data Labs: Lab Results 06/19/25 Range/Units 12:18 WBC 6.40 (4.50-11.00) K/uL RBC 5.08 (4.30-5.90) m/uL Hgb 13.9 (13.5-17.5) gm/dL Hct 44.4 (37.0-53.0) % MCV 87 (80-100) fL MCH 27 (26-34) pg MCHC 31 L (32-36) gm/dL RDW Coeff of Simon 13.6 (11.5-15.5) % Plt Count 260 (140-440) K/uL Neut % (Auto) 77.2 H (42.0-72.0) % Lymph % (Auto) 11.9 L (20-44) % [place] % (Auto) 8.4 (0.0-11.0) % Eos % (Auto) 1.7 (0.0-7.0) % Baso % (Auto) 0.5 (0.0-3.0) % Neut # (Auto) 4.90 (1.7-7.0) K/uL Lymph # (Auto) 0.80 L (0.90-2.90) K/uL [place] # (Auto) 0.50 (0.00-0.90) K/UL Eos # (Auto) 0.11 (0.00-0.50) K/uL Baso # (Auto) 0.03 (0.00-0.30) K/uL Abs Immat Gran (auto) 0.02 (0.00-0.30) K/uL Imm/Tot Granulo (auto) 0.3 % Sodium 136 (135-149) mmol/L Potassium 4.5 (3.6-5.1) mmol/L Chloride 100 (96-114) mmol/L Carbon Dioxide 32 (20-32) mmol/L Anion Gap 4 L (7-15) mEq/L BUN 23 (7-30) mg/dL Creatinine 0.9 (0.5-1.5) mg/dL Estimated Creat Clear 84.50 Estimated GFR 93 ml/min Glucose 99 (60-115) mg/dL Lactate 0.7 (0.5-1.9) mmol/L Calcium 9.7 (8.4-10.6) mg/dL C-Reactive Protein 6.3 H (0.5-1.0) mg/dL Imaging Data US venous RLE: Attestation: I have reviewed the pertinent imaging results. Radiologist's impression: Impression: No evidence of deep venous thrombosis. Lack of visualization of some of the calf veins is probably due to edema and body habitus/technical factors. Discharge Plan Discharge Clinical Impression: Cellulitis Patient Disposition: Admitted As Observation
[2025-06-19 12:27] LABS: Lactate* 0.7 mmol/L (0.5-1.9)
[2025-06-19 12:28] LABS: Hematocrit 44.4 % (37.0-53.0); Hemoglobin* 13.9 gm/dL (13.5-17.5); Mean Corpuscular HGB Conc 31 gm/dL (32-36); Mean Corpuscular Hemoglobin 27 pg (26-34); Mean Corpuscular Volume 87 fL (80-100); RDW Coefficient of Variation % 13.6 % (11.5-15.5); Red Blood Count 5.08 m/uL (4.30-5.90); White Blood Count* 6.40 K/uL (4.50-11.00)
[2025-06-19 12:29] LABS: Immature Granulocytes Abs Auto 0.02 K/uL (0.00-0.30); Immature Granulocytes Pct Auto 0.3 %
[2025-06-19 12:32] LABS: Lymphocytes Absolute Auto 0.80 K/uL (0.90-2.90); Slide Review Reflex No
[2025-06-19] MEDS: VANCOMYCIN 2 GM/400 ML 2 GM/400 ML PIGGYBACK IVPB (12:34)
[2025-06-19 12:41] LABS: Chloride* 100 mmol/L (96-114); Sodium* 136 mmol/L (135-149)
[2025-06-19 12:42] LABS: Potassium* 4.5 mmol/L (3.6-5.1)
[2025-06-19 12:44] LABS: Blood Urea Nitrogen* 23 mg/dL (7-30); Creatinine* 0.9 mg/dL (0.5-1.5); Est. Creatinine Clearance* 84.50; Estimated Glomerular Filt Rate 93 ml/min
[2025-06-19 12:45] LABS: Anion Gap 4 mEq/L (7-15); Calcium* 9.7 mg/dL (8.4-10.6); Carbon Dioxide* 32 mmol/L (20-32); Glucose* 99 mg/dL (60-115)
[2025-06-19 13:42] VITALS: BP 123/80; PULSE 88; RESP 18; TEMP 36.4; O2SAT 94
[2025-06-19 14:32] VITALS: BP 151/88; PULSE 74; RESP 18; TEMP 36.7; O2SAT 93; BMI 31.1
--- NOTE | 2025-06-19 14:54 | P.IMHP_ITS ---
Assessment and Plan Assessment and plan (1) Cellulitis: Problem comment: Failed 4 day treatment with doxycycline as an outpatient. This appears to be most likely a strep infection. Will treat with Ancef. Continue to monitor. Status: Acute (2) Smoker: Problem comment: Nicotine patch Status: Acute (3) Essential tremor: Problem comment: Previous trial of Inderal did not go well. Not interested in pursuing this at this time Status: Acute (4) COPD (chronic obstructive pulmonary disease): Problem comment: Continue albuterol inhaler as needed. May benefit from Lama or Laba if he can afford it Status: Acute (5) Type 2 diabetes mellitus in remission: Problem comment: Last hemoglobin A1c was 6.4 in September 2024 Status: Acute Plan 69-year-old male with right leg cellulitis having failed outpatient antibiotic therapy. Will admit for IV antibiotics, elevation. Likely will require 2-3 days in the hospital for clinical improvement. Total time spent today is 65 minutes in coordination of care, review of outside records and discussing with patient and his brother ongoing evaluation and management. Hospitalist- H&P: HPI History of Present Illness Date Seen: 06/19/25 Chief complaint: swollen leg Narrative: Ramon Mclain is a 69 year old male admitted to the hospital with progressive cellulitis of right leg. Patient was diagnosed with leg cellulitis 4 days ago in clinic. He was started on doxycycline 100 mg b.i.d.. Despite this therapy he has gotten progressively worse with increasing pain swelling and redness. He is not aware of a fever. No injury to his leg. In the emergency department he had evaluation including an ultrasound of his leg which showed no DVT. He was hospitalized here in September of 2024 for a left leg cellulitis. He had a positive blood culture which eventually grew Staph saprophyticus which is likely a contaminate. He does not normally have significant edema in his legs. He carries a diagnosis of diabetes mellitus but this is managed with diet and he reports his hemoglobin A1c has been well controlled. He does smoke cigarettes but is cutting back on that. He is interested in a nicotine patch. Review of Systems Narrative: He reports generally doing well except as noted above. He he does report that he feels like he is getting out of shape that he has more dyspnea with activity. He is not having exertional chest pain. He does have COPD from smoking and reports that he uses his inhaler quite frequently when he is active. Medical Decision Making Medical Decision Making Has patient completed a Health Care Directive: No [facility] Medical History Smoker ?F17.200 - Nicotine dependence, unspecified, uncomplicated (ICD-10) Essential tremor ?G25.0 - Essential tremor (ICD-10) COPD (chronic obstructive pulmonary disease) ?J44.9 - Chronic obstructive pulmonary disease, unspecified (ICD-10) Type 2 diabetes mellitus in remission ?E11.9 - Type 2 diabetes mellitus without complications (ICD-10) Surgical History History of knee replacement ?Z96.659 - Presence of unspecified artificial knee joint (ICD-10) Family History (Updated 06/19/25 @ 15:01 by Austyn Mcgrath MD) Mother Alzheimers disease Coronary artery disease Stroke Father Crohn's disease Social History (Updated 06/19/25 @ 15:01 by Austyn Mcgrath MD) Narrative: Retired, lives alone in [place] with a [place] address. Brother Quan would be MDM if needed. Full Code. Daily smoker, rarely drinks alcohol What is your current living situation?: I presently have a place to live Problems where you live: no known problems Problems where you live details: none In the past 12 months, utilities in danger of being shut off: no In past 12 months, lack of transportation kept you from medical appts, meetings, work, or getting things needed for daily living: no In the past 12 mos, have been you worried that your food would run out before you had money to buy more?: never true In the past 12 mos, the food you bought just didn't last and you didn't have money to buy more?: never true Smoking Status: Current every day smoker What tobacco products do you use: cigarettes How often do you have a drink containing alcohol: never AUDIT-C Alcohol total score: 0 Non-prescribed substance use: denies use How often does anyone, including family, friends and others, physically hurt you : never How often does anyone, including family, friends and others, insult or talk down to you: never How often does anyone, including family, friends and others, threaten you with harm: never How often does anyone, including family, friends and others, scream or curse at you: never service: No Meds Home Medications and Allergies Home Medications ?Medication ?Instructions ?Recorded ?Confirmed ?Type albuterol sulfate 90 mcg/actuation 1 - 2 puff inhalati on Q4H PRN 09/22/24 06/19/25 History aerosol inhaler dyspnea sildenafil 100 mg tablet 100 mg PO DAILY PRN 09/24/24 09/24/24 History doxycycline hyclate 100 mg tablet 100 mg PO BID 06/19/25 History hydrocodone 5 mg-acetaminophen 325 1 tab PO Q6H PRN pa in 06/19/25 06/19/25 History mg tablet Allergies Allergy/AdvReac Type Severity Reaction Status Date / Time No Known Drug Allergies Allergy Verified 06/19/25 10:06 Exam Narrative: Exam Narrative: He is alert and appears in no distress. Oropharynx with small airway. Neck is supple without mass or adenopathy. No tenderness. Respirations are clear to auscultation. Mildly decreased breath sounds without wheezing. Cardiovascular: S1, S2, regular rate and rhythm. No murmur gallop or rub. Abdomen: Bowel sounds very active. Abdomen is soft without tenderness or mass. Appears to have a diastasis recti. Lower extremities examined: Left lower extremity appears normal without significant edema. Is intact pulses. No rash. Right lower extremity has 3+ edema, erythema over most of the leg below the knee in a somewhat irregular pattern. Somewhat tender to palpation. Intact pedal pulses. No skin breakdown or ulceration. Const: Vital Signs, click to edit/add: Vital Signs - 24 hr 06/19/25 09:59 06/19/25 13:42 Temperature 96.4 F L 97.5 F L Pulse Rate [Pulse Oximeter] 79 88 Respiratory Rate 20 18 Blood Pressure [Ri ght Upper Arm] 141/73 H 123/80 Pulse Oximetry 91 94 Oxygen Delivery Me thod Room Air Room Air Documenting provider has reviewed patient's vital signs: yes Hospitalist - H&P: Result Labs Labs: Short CBC 06/19/25 Range/Units 12:18 WBC 6.40 (4.50-11.00) K/uL Hgb 13.9 (13.5-17.5) gm/dL Hct 44.4 (37.0-53.0) % Plt Count 260 (140-440) K/uL [facility] 06/19/25 12:18 Sodium 136 Potassium 4.5 Chloride 100 Carbon Dioxide 32 BUN 23 Creatinine 0.9 Glucose 99 Calcium 9.7 Imaging Venous US: Radiologist's impression: Comparison: September 22, 2024 Findings: The common femoral vein, greater saphenous vein, deep femoral vein, femoral vein, popliteal vein, peroneal vein and posterior tibial veins were studied. There is no venous thrombosis observed. Calf vein visualization is limited probably due to edema and body habitus. The calf veins were only adequately visualized distally and at the tibioperoneal trunk. Impression: No evidence of deep venous thrombosis. Lack of visualization of some of the calf veins is probably due to edema and body habitus/technical factors.
[2025-06-19] MEDS: CEFAZOLIN 1 GM in 0.9 % SODIUM CHLORIDE Mini-bag 100 ML IVPB ×2 (15:46→22:58)
[2025-06-19] MEDS: NICOTINE 21 MG PATCH 1 PATCH TRANSDERMA (15:46)
[2025-06-19 19:00] VITALS: BP 135/77; PULSE 73; RESP 18; TEMP 36.7; O2SAT 95
--- NOTE | 2025-06-19 19:30 | PC.NURSE ---
Nursing Care Hours: [id number] pt this shift calm and cooperative, alert and oriented. Pain rated 6/10, tolerating. Independent in the room, VSS. R leg swollen and red, no open areas seen. Pt kept leg elevated.
[2025-06-19] MEDS: HYDROCODONE-ACETAMIN 5-325 MG 1 TAB PO (19:57)
[2025-06-19 23:00] VITALS: BP 140/68; PULSE 73; PULSE 80; RESP 18; TEMP 36.8; O2SAT 97
[2025-06-20] VITALS (7 sets, daily range): BP systolic 131–152; BP diastolic 70–92; PULSE 69–91; RESP 16–18; TEMP 36.3–37.1; O2SAT 88–95
[2025-06-20] MEDS: CEFAZOLIN 1 GM in 0.9 % SODIUM CHLORIDE Mini-bag 100 ML IVPB ×3 (06:35→23:21)
[2025-06-20] MEDS: SODIUM CHLORIDE 0.9 % (FLUSH) 10 ML SYRINGE 5 ML IVF ×2 (09:16→20:50)
[2025-06-20] MEDS: SENNOSIDES/DOCUSATE TABLET PO (09:16)
--- NOTE | 2025-06-20 13:04 | REH.OT ---
OT: Patient is trialing use of edema wear size medium RLE with instructions for use and schedule provided in handout to patient and posted in room. Patient encouraged to elevate RLE above heart level. Patient reports has been having difficulty with balance with edema and pain RLE, fluctuating between use of 2ww, SEC, crutch and furniture walking at home. Spoke with MD and requested PT order to address recommendations for AD.
[2025-06-20] MEDS: NICOTINE 21 MG PATCH 1 PATCH TRANSDERMA (15:12)
--- NOTE | 2025-06-20 15:17 | PM.IMPN1 ---
Assessment and Plan Assessment and plan (1) Cellulitis: Problem comment: Failed 4 day treatment with doxycycline as an outpatient. This appears to be most likely a strep infection. Will treat with Ancef. Improving. Possible discharge tomorrow Status: Acute (2) Smoker: Problem comment: Nicotine patch Status: Acute (3) Essential tremor: Problem comment: Previous trial of Inderal did not go well. Not interested in pursuing this at this time Status: Acute (4) COPD (chronic obstructive pulmonary disease): Problem comment: Continue albuterol inhaler as needed. May benefit from Lama or Laba if he can afford it Status: Acute (5) Type 2 diabetes mellitus in remission: Problem comment: Last hemoglobin A1c was 6.4 in September 2024 Status: Acute Plan Continue in hospital for IV antibiotics. If continued improvement possible discharge to home tomorrow. Total Time Spent Total Time Spent: Total time spent today is 35 minutes in coordination of care and discussing with patient and other providers ongoing management of leg cellulitis and edema Subjective Date Seen: 06/20/25 Interval history: Ramon Mclain is a 69 year old male admitted to the hospital with progressive cellulitis of right leg. Patient was diagnosed with leg cellulitis 4 days ago in clinic. He was started on doxycycline 100 mg b.i.d.. Despite this therapy he has gotten progressively worse with increasing pain swelling and redness. He is not aware of a fever. No injury to his leg. In the emergency department he had evaluation including an ultrasound of his leg which showed no DVT. He was hospitalized here in September of 2024 for a left leg cellulitis. He had a positive blood culture which eventually grew Staph saprophyticus which is likely a contaminate. He does not normally have significant edema in his legs. He carries a diagnosis of diabetes mellitus but this is managed with diet and he reports his hemoglobin A1c has been well controlled. 06/20/2025: Patient reports that his leg feels better today. He thinks his last redness and swelling and pain. He is not aware of any fever. Therapy notes that he is a little unsteady on his feet so therapy will evaluate for that. No new concerns. Exam Narrative: Exam Narrative: He is alert and appears in no distress. He has moderate erythema and edema in his leg. Minimal tenderness. Intact pulse. Const: Vital Signs, click to edit/add: Vital Signs - 24 hr 06/19/25 19:00 06/19/25 23:00 06/19/25 23:00 Temperature 98.0 F 98.3 F Pulse Rate [Right Pulse Oximeter] 73 73 80 Respiratory Rate 18 18 18 Blood Pressure [Ri ght Arm] 135/77 140/68 H Pulse Oximetry 95 97 Oxygen Delivery Me thod Room Air Room Air 06/20/25 03:00 06/20/25 07:00 06/20/25 07:00 Temperature 98.3 F 97.4 F L Pulse Rate [Right Pulse Oximeter] 88 69 69 Respiratory Rate 18 18 18 Blood Pressure [Ri ght Arm] 136/70 152/83 H Pulse Oximetry 95 94 Oxygen Delivery Me thod Room Air Room Air 06/20/25 11:00 Temperature 98.1 F Pulse Rate [Right Pulse Oximeter] 79 Respiratory Rate 18 Blood Pressure [Ri ght Arm] 145/85 H Pulse Oximetry 91 Oxygen Delivery Me thod Room Air Documenting provider has reviewed patient's vital signs: yes
--- NOTE | 2025-06-20 18:23 | PC.NURSE ---
Shift Summary: Patient pleasant and cooperative. Up independently. Wearing edema wear and tolerating well. Vitals stable and WNL. Patient states that he feels right leg has improved today. Tolerating regular diet, denies nausea. States pain is tolerable and only notices it when ambulating.
[2025-06-20] MEDS: ENOXAPARIN 40 MG/0.4 ML INJ SUBCUT (20:50)
[2025-06-21 03:35] VITALS: BP 126/69; PULSE 72; RESP 16; TEMP 36.8; O2SAT 91
[2025-06-21] MEDS: CEFAZOLIN 1 GM in 0.9 % SODIUM CHLORIDE Mini-bag 100 ML IVPB (06:27)
[2025-06-21 07:00] VITALS: BP 144/88; PULSE 70; RESP 16; TEMP 36.4; O2SAT 90
--- NOTE | 2025-06-21 07:12 | PC.NURSE ---
End of shift: Pt pleasant, alert and oriented.?Pt stated minimal pain and denied the need for pain medication. Pt stated rt leg/foot seemed ?more swollen? tonight than it did throughout the day. Pt educated on elevation and walking to help reduce swelling. Pt stated improvement as shift continued. Up independently, tolerated well. Pt in bed, appears to be resting, call light within reach.?
[2025-06-21 11:00] VITALS: BP 138/88; PULSE 63; RESP 16; TEMP 36.4; O2SAT 94
[2025-06-21] MEDS: SODIUM CHLORIDE 0.9 % (FLUSH) 10 ML SYRINGE 5 ML IVF (11:14)
--- NOTE | 2025-06-21 13:03 | PC.NURSE ---
D/C note: Pt. AOx4. VSS. Afebrile. Pt. R LE no open abrasions, pink, warm, edema. Edema stocking on R LE. Pt. demonstrated to PT ability to place edema stocking on and off himself. D/C education done on antibiotics, s & s of infection, infection precautions, and smoking cessation. Pt. IV removed & pt belongings form signed. Pt. wheeled out by VICKI to friends' personal vehicle as a ride home.
--- NOTE | 2025-06-21 18:01 | PM.DS1 ---
DS: Providers Provider Date Seen: 06/21/25 Date of admission: 06/19/25 14:43 Primary care physician: Nas Falk MD Admitting Clinician: Austyn Mcgrath MD Consults: 06/20/25 10:22 Consult to Occupational Therapy [CONS] Routine Comment: Reason(s) for OT Consult:: Evaluate and Treat Any Restrictions?:: No Restrictions Comment: Edema Wear 06/20/25 12:40 Consult to Physical Therapy [CONS] Routine Comment: Reason(s) for PT Consult:: Evaluate Ambulation Any Restrictions?:: No Restrictions Attending Physician on discharge: Morenita Ramirez MD [facility] Date of Discharge: 06/21/25 DS: Diagnosis Discharge Diagnosis (1) Cellulitis: Status: Acute Problem details: Failed 4 day treatment with doxycycline as an outpatient. -improved nicely with Ancef, transition to oral cephalexin at discharge x 1 week (2) Smoker: Status: Acute Problem details: Nicotine patch during hospitalization (3) Essential tremor: Status: Acute Problem details: Previous trial of Inderal did not go well. Not interested in pursuing this at this time (4) COPD (chronic obstructive pulmonary disease): Status: Acute Problem details: Continue albuterol inhaler as needed. May benefit from Lama or Laba if he can afford it (5) Type 2 diabetes mellitus in remission: Status: Acute Problem details: Last hemoglobin A1c was 6.4 in September 2024 DS: Summary Hospital Course Hospital Course: QUESTIONS TO ASK AT FOLLOW-UP: 1. How does the right ankle feel? Is the swelling down? Is the redness down? Have you finished your 1 week of cephalexin? Treated for a cellulitis that failed outpatient doxycycline but responded nicely to IV Ancef. This likely represents a strep infection. Not septic. BRIEF HOSPITAL COURSE: Patient was admitted for 3 days days. Synopsis of acute inpatient issues are outlined above. Chronic medical conditions with notable findings outlined above. Venous duplex was negative. Blood cultures were negative at 48 hours and can be followed up as an outpatient if needed. No concern for sepsis. DISCHARGE MEDICATIONS: See Reconciled list - SIGNIFICANT CHANGES: Topical clotrimazole between toes and top of foot, likely will need long-term Short course, 7 days of cephalexin 500 mg t.i.d. Specific instructions to the patient and follow-up are outlined below. REVIEW OF SYSTEMS No new chest pain or dyspnea Pain controlled No voiding difficulties Tolerating diet challenge PHYSICAL EXAM: CONSTITUTIONAL: Conversive, good historian. A/O. Knows setting and context. GENERAL: Well-developed and above ideal body weight, in no respiratory distress. VITAL SIGNS: see record. HEENT: Sclerae are anicteric. No petechiae. CARDIAC: rhythm is regular. There is no S3 or rub. No harsh murmurs. Extremities show trace edema with symmetrical pulses. PULM: good air entry with no wheeze. NEURO: Speech is fluent. A brief neurologic exam is negative. SKIN: We reviewed the findings of some moderate edema, 2+ in that right ankle and top of foot. Erythema by patient's report is markedly reduced. Pain is much improved. PSYCHIATRIC: Euthymic. DISPOSITION: Home Time spent on discharge 37 minutes. Status at Discharge Overall status at discharge: patient is progressing back to baseline Time Spent with Patient Time attestation: Total time spent providing and/or coordinating discharge services: Time spent: Greater than 30 minutes Exam Const: Vital Signs, click to edit/add: Vital Signs - 24 hr 06/20/25 19:00 06/20/25 23:00 06/20/25 23:00 Temperature 98.1 F 98.7 F Pulse Rate [Right Pulse Oximeter] 91 90 90 Respiratory Rate 18 16 16 Blood Pressure [Ri ght Arm] 133/75 143/92 H Pulse Oximetry 88 89 Oxygen Delivery Me thod Room Air Room Air 06/21/25 03:35 06/21/25 07:00 06/21/25 07:00 Temperature 98.2 F 97.5 F L Pulse Rate [Right Pulse Oximeter] 72 70 70 Respiratory Rate 16 16 16 Blood Pressure [Ri ght Arm] 126/69 144/88 H Pulse Oximetry 91 90 Oxygen Delivery Me thod Room Air Room Air 06/21/25 11:00 Temperature 97.6 F Pulse Rate [Right Pulse Oximeter] 63 Respiratory Rate 16 Blood Pressure [Ri ght Arm] 138/88 Pulse Oximetry 94 Oxygen Delivery Me thod Room Air DS: Data Data Completed and Pending Labs on day of discharge: Preliminary micro results at discharge 06/19/25 12:18 Blood Culture - Preliminary Blood NO GROWTH AFTER 48 HOURS 06/19/25 12:18 Blood Culture - Preliminary Blood NO GROWTH AFTER 48 HOURS Discharge Plan Discharge Disposition: Home, Self-Care Date of Admission: 06/19/25 14:43 Primary Care Provider: Nas Falk Condition: Stable Anticipated Discharge Date/Time: 06/21/25 11:26 Discharge Medications: New cephalexin 500 mg capsule 500 mg PO TID Qty: 21 0RF clotrimazole 1 % cream 1 applic topical BID Qty: 45 0RF Rx Instructions: apply nightly Continued albuterol sulfate 90 mcg/actuation HFA aerosol inhaler 1 - 2 puff INHALATION Q4H PRN (Reason: dyspnea) sildenafil 100 mg tablet 100 mg PO DAILY PRN hydrocodone-acetaminophen 5-325 mg tablet 1 tab PO Q6H PRN (Reason: pain) Discontinued doxycycline hyclate 100 mg tablet 100 mg PO BID Discharge Orders: Discharge Order (Routine); Ordered 06/21/25 Ordered By: Morenita Ramirez Patient Education: Cephalexin (By mouth), Betamethasone/Clotrimazole (On the skin), Cellulitis (GEN) Additional Instructions: 1. No more cutting your own nails or bunions. This is not going well for you. You can seek podiatry, friend/family, or even a nail salon 2. Finish all abx, three times a day with food. 3. soak once a day in epson salts, DRY your feet well, apply the antifungal, clotrimazole, after. 4. elevate and wear the Edema Lozano as much as you can. Activity Level: Activity as Tolerated Discharge Diet: Regular Follow Up Appointments: Nas Falk MD [Primary Care Provider, Family Practice] - 06/30/25 11:10 am Referral Note: [facility] for follow up with PCP Forms: Patient Belongings, [facility] Info Instructions
== END 2025-06-21 13:50 | disposition home or self-care (01) | DRG 603 ==
LOC: ED 13:34 → MEDSURG 14:05
PROVIDERS: Admitting Provider Family Medicine; Emergency Provider Emergency Medicine; PCP Family Medicine; Visit Provider Family Medicine
DX: L03.116 Cellulitis of left lower limb (principal); E11.9 Type 2 diabetes mellitus without complications; J44.9 Chronic obstructive pulmonary disease, unspecified; F17.210 Nicotine dependence, cigarettes, uncomplicated; G25.0 Essential tremor
CPT/HCPCS: 36415; 80048; 83605; 85025; 86140; 87040; 93971; 97161; 97165; 97530; 99284; 99285; A9270; J0690; J1650; J3375; S4990